=== PATIENT | male | born 1970 | race Caucasian/White ===

== ENCOUNTER 2018-08-28 13:27 | Emergency (ER) | payer SELFPAY ==
[2018-08-28] MEDS ORDERED: IPRATROPIUM/ALBUTEROL 0.5-2.5 MG/3 ML AMPUL NEB ONE ×2 (13:57→19:03)
--- NOTE | 2018-08-28 14:03 | ER Document Report ---
Addendum entered and electronically signed by PAYAM SANDERSON PA 08/30/18 06:53: Discharge - Discharge Clinical Impression: COPD (chronic obstructive pulmonary disease) with acute bronchitis, Wheezing Disposition: HOME, SELF-CARE Instructions: Chronic Obstructive Lung Disease ([facility]), Doxycycline ([facility]), Inhaled Bronchodilators ([facility]), Steroid Medication Additional Instructions: Return immediately for any new or worsening symptoms Followup with your primary care provider, call tomorrow to make a followup appointment Stop smoking Prescriptions: RX: Doxycycline Hyclate 100 mg PO BID #20 capsule Ipratropium/Albuterol Sulfate [Combivent Respimat 4 gm Mdi] 1 puff IH Q6 #1 aer.w.adap RX: Prednisone [Deltasone 20 mg Tablet] 3 tab PO DAILY 5 Days tablet Forms: Smoking Cessation Education, Return to Work Referrals: [facility] [Provider Group] - Follow up as needed [facility] [Provider Group] - Follow up as needed Addendum entered and electronically signed by RAMESH WILLIAM NP 08/29/18 07:09: Discharge - Discharge Clinical Impression: COPD (chronic obstructive pulmonary disease) with acute bronchitis, Wheezing Disposition: HOME, SELF-CARE Instructions: Chronic Obstructive Lung Disease ([facility]), Doxycycline ([facility]), Inhaled Bronchodilators ([facility]), Steroid Medication Additional Instructions: Return immediately for any new or worsening symptoms Followup with your primary care provider, call tomorrow to make a followup appointment Stop smoking Prescriptions: RX: Doxycycline Hyclate 100 mg PO BID #20 capsule Ipratropium/Albuterol Sulfate [Combivent Respimat 4 gm Mdi] 1 puff IH Q6 #1 aer.w.adap RX: Prednisone [Deltasone 20 mg Tablet] 3 tab PO DAILY 5 Days tablet Forms: Smoking Cessation Education, Return to Work Referrals: [facility] [Provider Group] - Follow up as needed [facility] [Provider Group] - Follow up as needed Addendum entered and electronically signed by RAMESH WILLIAM NP 08/29/18 07:08: Discharge - Discharge Clinical Impression: COPD (chronic obstructive pulmonary disease) with acute bronchitis, Wheezing Disposition: HOME, SELF-CARE Instructions: Chronic Obstructive Lung Disease ([facility]), Doxycycline ([facility]), Inhaled Bronchodilators ([facility]), Steroid Medication Additional Instructions: Return immediately for any new or worsening symptoms Followup with your primary care provider, call tomorrow to make a followup appointment Stop smoking Prescriptions: RX: Doxycycline Hyclate 100 mg PO BID #20 capsule Ipratropium/Albuterol Sulfate [Combivent Respimat 4 gm Mdi] 1 puff IH Q6 #1 aer.w.adap RX: Prednisone [Deltasone 20 mg Tablet] 3 tab PO DAILY 5 Days tablet Forms: Smoking Cessation Education, Return to Work Referrals: [facility] [Provider Group] - Follow up as needed [facility] [Provider Group] - Follow up as needed Original Note: ED Respiratory Problem - General Mode of Arrival: Ambulatory Information source: Patient - HPI Patient complains to provider of: Cough, Short of breath Onset: Other - 4 days Duration: Worse/persistent Quality of pain: Achy Pain Level: 3 Context: Smoker Sputum amount: Moderate Sputum color: Clear Associated symptoms: Cough, Fever, Wheezing. denies: Bloody cough, Chest pain/discomfort, Jaw pain Similar symptoms previously: No Recently seen / treated by doctor: No <RAMESH WILLIAM - Last Filed: 08/28/18 19:32> <PAYAM SANDERSON - Last Filed: 08/28/18 21:49> - General Chief Complaint: Shortness Of Breath Stated Complaint: DIFFICULTY BREATHING Time Seen by Provider: 08/28/18 13:47 Notes: Patient presents with a 4-day history of productive cough, wheezing and dyspnea that is worse with exertion. Patient denies any chest pain but does complain of left upper back pain that started around 9 AM today. Patient reports subjective fever at home. Patient does not regularly go to a doctor but does report smoking a pack of cigarettes a day for many years. (RAMESH WILLIAM) - Related Data Allergies/Adverse Reactions: BEESTINGS Allergy (Uncoded 08/28/18 13:44) Anaphylaxis Past Medical History - General Information source: Patient - Social History Smoking Status: Current Every Day Smoker Frequency of alcohol use: None Drug Abuse: None Occupation: [employer] Lives with: Spouse/Significant other Family History: Reviewed & Not Pertinent Patient has suicidal ideation: No Patient has homicidal ideation: No - Medical History Medical History: Negative Renal/ Medical History: Denies: Hx Peritoneal Dialysis Surgical Hx: Negative <RAMESH WILLIAM - Last Filed: 08/28/18 19:32> Review of Systems - Review of Systems Constitutional: Fever EENT: No symptoms reported Cardiovascular: No symptoms reported. denies: Chest pain Respiratory: Cough, Short of breath, Sputum, Wheezing Gastrointestinal: No symptoms reported. denies: Vomiting Genitourinary: No symptoms reported. denies: Dysuria Male Genitourinary: No symptoms reported Musculoskeletal: Back pain Skin: No symptoms reported Hematologic/Lymphatic: No symptoms reported Neurological/Psychological: No symptoms reported <RAMESH WILLIAM - Last Filed: 08/28/18 19:32> Physical Exam - General General appearance: Alert In distress: Mild - HEENT Head: Normocephalic, Atraumatic Eyes: Normal Conjunctiva: Normal Nasal: Normal Mouth/Lips: Normal Mucous membranes: Normal Neck: Normal, Supple. No: Lymphadenopathy - Respiratory Respiratory status: Tachypnea Chest status: Nontender Breath sounds: Productive cough, Wheezing Chest palpation: Normal. No: Tender - Cardiovascular Rhythm: Regular. No: Tachycardia Heart sounds: S1 appreciated, S2 appreciated Murmur: No - Abdominal Inspection: Normal Distension: No distension Bowel sounds: Normal Tenderness: Nontender Organomegaly: No organomegaly - Back Back: Tender - left upper thoracic area - Extremities General upper extremity: Normal inspection, Normal strength General lower extremity: Normal inspection, Normal strength - Neurological Neuro grossly intact: Yes Mara Coma Scale Eye Opening: Spontaneous Mara Coma Scale Verbal: Oriented [place] Coma Scale Motor: Obeys Commands [place] Coma Scale Total: 15 - Psychological Associated symptoms: Normal affect, Normal mood - Skin Skin Temperature: Warm Skin Moisture: Dry Skin Color: Normal <STEWARTRAMESH Webster - Last Filed: 08/28/18 19:32> - Vital signs Vitals: Temp 98.3 F 08/28/18 13:38 Course - Laboratory Result Diagrams: 08/28/18 14:19 08/28/18 14:19 - Diagnostic Test Radiology reviewed: Reports reviewed <[email or web address] Webster - Last Filed: 08/28/18 19:32> - Laboratory Result Diagrams: 08/28/18 14:19 08/28/18 14:19 <PAYAM SANDERSON - Last Filed: 08/28/18 21:49> - Re-evaluation Re-evalutation: 08/28/18 16:51 Patient with stable vital signs, diffuse wheezing bilaterally continues. Will repeat troponin as well as an ABG at this time. Additional nebulizer treatment ordered. 08/28/18 19:08 Patient ambulated in the hallway, heart rate got up to 104 with oxygen saturati on 90-94%. On repeat examination room. Continues with bilateral wheezing although does have increased air movement and has less wheezing than on initial presentation. In the room sitting patient's O2 sat ranges from 88-93%. Will order additional nebulizer treatment. Report and handoff given to Payam HARRIS (RAMESH WILLIAM) 08/28/18 On my evaluation patient is 98% on room air. No tachypnea, no respiratory distress, no complaints currently. He has a few coarse breath sounds and soft wheezes still on auscultation. He states he would like to go home now. He has already ambulated without concerning desaturation or distress. Provided with inhaler and spacer, has been prescribed medications, discussed follow-up and return precautions. Patient and state satisfaction and agreement. Stable at time of discharge. (PAYAM SANDERSON) - Vital Signs Vital signs: Temp Pulse Resp BP Pulse Ox 98.3 F 26 H 140/127 H 96 08/28/18 13:38 08/28/18 20:01 08/28/18 20:01 08/28/18 20:01 - Laboratory Laboratory results interpreted by me: 08/28/18 08/28/18 14:19 17:28 ABG pO2 54.7 L ABG HCO3 26.4 H ABG Total CO2 27.7 H ABG O2 Saturation 89.0 L Glucose 112 H ALT 12 L Labs- Entire Visit 08/28/18 08/28/18 08/28/18 14:19 14:19 14:19 WBC 8.8 RBC 5.40 Hgb 15.2 Hct 45.7 MCV 85 MCH 28.1 MCHC 33.3 RDW 13.6 Plt Count 348 Seg Neutrophils % 71.0 Lymphocytes % 17.3 Monocytes % 4.7 Eosinophils % 6.0 Basophils % 1.0 Absolute Neutrophils 6.3 Absolute Lymphocytes 1.5 Absolute Monocytes 0.4 Absolute Eosinophils 0.5 Absolute Basophils 0.1 D-Dimer Carbonic Acid HCO3/H2CO3 Ratio ABG pH ABG pCO2 ABG pO2 ABG HCO3 ABG Total CO2 ABG O2 Saturation ABG Base Excess FiO2 Sodium 141.3 Potassium 4.2 Chloride 104 Carbon Dioxide 25 Anion Gap 12 BUN 18 Creatinine 0.84 Est GFR ( Amer) > 60 Est GFR (Non-Af Amer) > 60 Glucose 112 H Calcium 9.6 Total Bilirubin 0.5 Direct Bilirubin 0.3 Neonat Total Bilirubin Not Reportable Neonat Direct Bilirubin Not Reportable Neonat Indirect Bili Not Reportable AST 23 ALT 12 L Alkaline Phosphatase 51 Troponin I < 0.012 Total Protein 8.1 Albumin 4.7 Influenza A (Rapid) Influenza B (Rapid) 08/28/18 08/28/18 08/28/18 14:19 17:28 17:28 WBC RBC Hgb Hct MCV MCH MCHC RDW Plt Count Seg Neutrophils % Lymphocytes % Monocytes % Eosinophils % Basophils % Absolute Neutrophils Absolute Lymphocytes Absolute Monocytes Absolute Eosinophils Absolute Basophils D-Dimer < 0.27 Carbonic Acid 1.25 HCO3/H2CO3 Ratio 21:1 ABG pH 7.42 ABG pCO2 41.6 ABG pO2 54.7 L ABG HCO3 26.4 H ABG Total CO2 27.7 H ABG O2 Saturation 89.0 L ABG Base Excess 1.7 FiO2 ROOM AIR Sodium Potassium Chloride Carbon Dioxide Anion Gap BUN Creatinine Est GFR ( Amer) Est GFR (Non-Af Amer) Glucose Calcium Total Bilirubin Direct Bilirubin Neonat Total Bilirubin Neonat Direct Bilirubin Neonat Indirect Bili AST ALT Alkaline Phosphatase Troponin I < 0.012 Total Protein Albumin Influenza A (Rapid) Influenza B (Rapid) 08/28/18 17:28 WBC RBC Hgb Hct MCV MCH MCHC RDW Plt Count Seg Neutrophils % Lymphocytes % Monocytes % Eosinophils % Basophils % Absolute Neutrophils Absolute Lymphocytes Absolute Monocytes Absolute Eosinophils Absolute Basophils D-Dimer Carbonic Acid HCO3/H2CO3 Ratio ABG pH ABG pCO2 ABG pO2 ABG HCO3 ABG Total CO2 ABG O2 Saturation ABG Base Excess FiO2 Sodium Potassium Chloride Carbon Dioxide Anion Gap BUN Creatinine Est GFR ( Amer) Est GFR (Non-Af Amer) Glucose Calcium Total Bilirubin Direct Bilirubin Neonat Total Bilirubin Neonat Direct Bilirubin Neonat Indirect Bili AST ALT Alkaline Phosphatase Troponin I Total Protein Albumin Influenza A (Rapid) NEGATIVE Influenza B (Rapid) NEGATIVE (RAMESH WILLIAM) Discharge <RAMESH WILLIAM - Last Filed: 08/28/18 19:32> <PAYAM SANDERSON - Last Filed: 08/28/18 21:49> - Discharge Clinical Impression: COPD (chronic obstructive pulmonary disease) with acute bronchitis, Wheezing Disposition: HOME, SELF-CARE Instructions: Chronic Obstructive Lung Disease ([facility]), Doxycycline ([facility]), Inhaled Bronchodilators ([facility]), Steroid Medication Additional Instructions: Return immediately for any new or worsening symptoms Followup with your primary care provider, call tomorrow to make a followup appointment Stop smoking Prescriptions: Doxycycline Hyclate 100 mg PO BID #20 capsule Ipratropium/Albuterol Sulfate [Combivent Respimat 4 gm Mdi] 1 puff IH Q6 #1 aer.w.adap Prednisone [Deltasone 20 mg Tablet] 3 tab PO DAILY 5 Days tablet Forms: Smoking Cessation Education, Return to Work Referrals: [facility] [Provider Group] - Follow up as needed [facility] [Provider Group] - Follow up as needed
[2018-08-28 14:44] LABS: ABSOLUTE BASOPHILS # (AUTO) 0.1 10^3/uL (0.0-0.2); ABSOLUTE EOSINOPHILS # (AUTO) 0.5 10^3/uL (0.0-0.6); ABSOLUTE LYMPHOCYTES (AUTO) 1.5 10^3/uL (0.5-4.7); ABSOLUTE MONOCYTES (AUTO) 0.4 10^3/uL (0.1-1.4); ABSOLUTE NEUT (AUTO) 6.3 10^3/uL (1.7-8.2); HEMATOCRIT 45.7 % (37.9-51.0); HEMOGLOBIN 15.2 g/dL (13.5-17.0); LYMPHOCYTES % (AUTO) 17.3 % (13-45); MEAN CORPUSCULAR HEMOGLOBIN 28.1 pg (27.0-33.4); MEAN CORPUSCULAR HGB CONC 33.3 g/dL (32.0-36.0); MEAN CORPUSCULAR VOLUME 85 fl (80-97); MONOCYTES % (AUTO) 4.7 % (3-13); PLATELET COUNT 348 10^3/uL (150-450); RED CELL DISTRIBUTION WIDTH 13.6 % (11.5-14.0); TOTAL CELLS COUNTED % (AUTO) 100 %; WHITE BLOOD COUNT 8.8 10^3/uL (4.0-10.5)
[2018-08-28 14:47] LABS: ALANINE AMINOTRANSFERASE 12 U/L (21-72); ALBUMIN 4.7 g/dL (3.5-5.0); ALKALINE PHOSPHATASE 51 U/L (38-126); ANION GAP 12 (5-19); ASPARTATE AMINO TRANSFERASE 23 U/L (17-59); BILIRUBIN,DIRECT 0.3 mg/dL (0.0-0.4); BILIRUBIN,TOTAL 0.5 mg/dL (0.2-1.3); BLOOD UREA NITROGEN 18 mg/dL (7-20); CALCIUM 9.6 mg/dL (8.4-10.2); CARBON DIOXIDE 25 mmol/L (22-30); CHLORIDE 104 mmol/L (98-107); GLUCOSE 112 mg/dL (75-110); POTASSIUM 4.2 mmol/L (3.6-5.0); SODIUM 141.3 mmol/L (137-145); TOTAL PROTEIN 8.1 g/dL (6.3-8.2)
[2018-08-28] MEDS ORDERED: CEFTRIAXONE INJ 1000 MG VIAL IV ONE (14:58)
--- NOTE | 2018-08-28 15:29 | RADIOLOGY REPORT (SQ) ---
EXAM DESCRIPTION: CHEST 2 VIEWS COMPLETED DATE/TIME: 08/28/2018 3:10 pm REASON FOR STUDY: cough, sob COMPARISON: None. TECHNIQUE: Frontal and lateral radiographic views of the chest acquired. NUMBER OF VIEWS: Two view. LIMITATIONS: None. FINDINGS: LUNGS AND PLEURA: No opacities, masses or pneumothorax. No pleural effusion. MEDIASTINUM AND HILAR STRUCTURES: No masses or contour abnormalities. HEART AND VASCULAR STRUCTURES: Heart normal size. No evidence for failure. BONES: No acute findings. HARDWARE: None in the chest. OTHER: No other significant finding. IMPRESSION: NO SIGNIFICANT RADIOGRAPHIC FINDING IN THE CHEST. TECHNICAL DOCUMENTATION: JOB ID: [id number] [employer]- All Rights Reserved Reading location - IP/workstation name: [email or web address]
[2018-08-28] MEDS ORDERED: ALBUTEROL SULFATE 0.083% NEB 2.5 MG/3 ML AMPUL NEB ONE ×2 (16:50→18:07)
[2018-08-28] MEDS ORDERED: DOXYCYCLINE HYCLATE INJ 100 MG VIAL IV ONE (16:50)
[2018-08-28 17:39] LABS: ARTERIAL BLOOD BASE EXCESS 1.7 mmol/L; ARTERIAL BLOOD H2CO3 1.25 mmol/L (1.05-1.35); ARTERIAL BLOOD HCO3 26.4 mmol/L (20-24); ARTERIAL BLOOD PCO2 41.6 mmHg (35-45); ARTERIAL BLOOD PH 7.42 (7.35-7.45); ARTERIAL BLOOD PO2 54.7 mmHg (80-100); ARTERIAL BLOOD TOTAL CO2 27.7 mmol/L (23-27)
[2018-08-28 17:40] LABS: ARTERIAL BLOOD FIO2 ROOM AIR
[2018-08-28 18:08] LABS: A TYPE INFLUENZA AG NEGATIVE (NEGATIVE); B INFLUENZA AG NEGATIVE (NEGATIVE)
[2018-08-28] MEDS ORDERED: PREDNISONE 20 MG TABLET PO ONE (19:03)
[2018-08-28] MEDS ORDERED: ALBUTEROL SULFATE HFA (90 MCG/PUFF) 8 GM MDI (1 MDI/ER DISP) IH ONE (19:13)
[2018-08-28 20:16] VITALS: BP 140/127
--- NOTE | 2018-08-28 22:13 | EKG REPORT ---
SEVERITY:- NORMAL ECG - SINUS RHYTHM : Confirmed by: Keri Ireland MD 28-Aug-2018 22:12:54
== END 2018-08-28 20:27 | disposition home or self-care (01) ==
LOC: ER 13:27
DX: J20.9 Acute bronchitis, unspecified (principal); J44.0 Chronic obstructive pulmonary disease with (acute) lower respiratory infection; R05 Cough; R06.02 Shortness of breath; R50.9 Fever, unspecified; M54.89 Other dorsalgia; F17.210 Nicotine dependence, cigarettes, uncomplicated; Z87.892 Personal history of anaphylaxis; Z91.030 Bee allergy status
CPT/HCPCS: 93005; 94640 ×2; 99285; 96365; 96367; 36415; 87040; 87070; 87205; 82803; 85025; 80053; 84484; 85379; 87804; 71046; 93010; J3490 ×2; J7512; J0696; J7620

== ENCOUNTER 2019-05-30 02:15 | Inpatient (IN) | payer OTHER ==
[2019-05-30] MEDS ORDERED: IPRATROPIUM/ALBUTEROL 0.5-2.5 MG/3 ML AMPUL NEB ONE ×2 (02:48→02:49)
--- NOTE | 2019-05-30 02:51 | ER Document Report ---
ED Respiratory Problem - General Stated Complaint: SHORTNESS OF BREATH Time Seen by Provider: 05/30/19 02:44 Notes: Patient is a 48-year-old male that comes emergency department for chief complaint of difficulty breathing. He states that he has had worsening difficulty breathing and coughing with wheezing for the past 3 days but tonight it became much more severe. EMS gave him 1 DuoNeb, 2 albuterol treatments, and 125 mg of Solu-Medrol. He states now he can actually breathe but he still does not feel good. He denies fever, vomiting, specific chest pain without cough, or any other complaints at this time. He does smoke, has a history of COPD, he denies any medical history otherwise. He denies ever being hospitalized or intubated for COPD. - Related Data Allergies/Adverse Reactions: BEESTINGS Allergy (Uncoded 08/28/18 13:44) Anaphylaxis Past Medical History - General Information source: Patient - Social History Smoking Status: Current Every Day Smoker Smoking Education Provided: Yes Frequency of alcohol use: None Drug Abuse: None Lives with: Family Family History: Reviewed & Not Pertinent Pulmonary Medical History: Reports: Hx COPD Renal/ Medical History: Denies: Hx Peritoneal Dialysis - Immunizations Hx Diphtheria, Pertussis, Tetanus Vaccination: Yes Review of Systems - Review of Systems Constitutional: No symptoms reported EENT: No symptoms reported Cardiovascular: No symptoms reported Respiratory: See HPI Gastrointestinal: No symptoms reported Genitourinary: No symptoms reported Male Genitourinary: No symptoms reported Musculoskeletal: No symptoms reported Skin: No symptoms reported Hematologic/Lymphatic: No symptoms reported Neurological/Psychological: No symptoms reported Physical Exam - Vital signs Vitals: Resp 24 H 05/30/19 02:28 - Notes Notes: GENERAL: Alert, interacts well. HEAD: Normocephalic, atraumatic. EYES: Pupils equal, round, and reactive to light. Extraocular movements intact. ENT: Oral mucosa moist, tongue midline. Oropharynx unremarkable. Airway patent. NECK: Full range of motion. Supple. Trachea midline. LUNGS: Mild tachypnea noted, lung sounds decreased bilaterally with expiratory wheezes and scattered rhonchi. HEART: Regular rate and rhythm. No murmur ABDOMEN: Soft, non-tender. Non-distended. EXTREMITIES: Moves all 4 extremities spontaneously. No edema, normal radial and dorsalis pedis pulses bilaterally. No cyanosis. BACK: no cervical, thoracic, lumbar midline tenderness. No saddle anesthesia, normal distal neurovascular exam. Moves all extremities in full range of motion. NEUROLOGICAL: Alert and oriented x3. Normal speech. Cranial nerves II through XII grossly intact. PSYCH: Normal affect, normal mood. SKIN: Warm, dry, normal turgor. No rashes or lesions noted. Course - Re-evaluation Re-evalutation: On my initial evaluation patient has mild tachypnea, very decreased breath sounds with scattered rhonchi and expiratory wheezes. He is also borderline hypoxic despite the DuoNeb. Given additional DuoNeb, magnesium, he will be closely reassessed. CBC nonspecific, chemistry nonspecific, troponin is not elevated. Chest x-ray with no acute disease. ABG shows PO2 of 61 despite patient having the DuoNeb going at 6 L. There is no acidosis fortunately however. On reevaluation after all treatments patient is still improved but still has notable wheezes. He is not tachypneic. However at rest he will drop down to 87 and 88 pulse oxygen saturation without even getting up and walking. He still admits that he feels slightly short of breath. Patient placed back on oxygen and with 3 L nasal cannula he is at 96%. Because of his oxygen requirement, COPD exacerbation, I discussed the patient and I will discuss with his provider for admission to the hospital. Patient states appreciation and agreement. I spoke with Dr. Malik, patient's provider, patient admitted to telemetry observation. - Vital Signs Vital signs: Temp Pulse Resp BP Pulse Ox 17 128/85 H 94 05/30/19 04:01 05/30/19 04:01 05/30/19 04:17 - Laboratory Result Diagrams: 05/30/19 03:20 05/30/19 03:20 Laboratory results interpreted by me: 05/30/19 05/30/19 05/30/19 03:20 03:20 03:58 WBC 11.3 H Lymph % (Auto) 11.8 L Absolute Neuts (auto) 8.8 H ABG pO2 63.1 L ABG HCO3 26.8 H ABG Total CO2 28.2 H ABG O2 Saturation 92.1 L Potassium 3.5 L Glucose 145 H Discharge - Discharge Clinical Impression: COPD exacerbation, Hypoxia, Wheezing, Tobacco abuse Condition: Stable Disposition: ADMITTED OBSERVATION Admitting Provider: [facility] Admitted: Telemetry
[2019-05-30] MEDS: MAGNESIUM SULFATE/D5W 1 GM/100 ML RTUPB IV SCH ×2 (03:21→03:59)
[2019-05-30 03:43] LABS: ABSOLUTE BASOPHILS # (AUTO) 0.1 10^3/uL (0.0-0.2); ABSOLUTE EOSINOPHILS # (AUTO) 0.6 10^3/uL (0.0-0.6); ABSOLUTE LYMPHOCYTES (AUTO) 1.3 10^3/uL (0.5-4.7); ABSOLUTE MONOCYTES (AUTO) 0.5 10^3/uL (0.1-1.4); ABSOLUTE NEUT (AUTO) 8.8 10^3/uL (1.7-8.2); BASOPHILS % (AUTO) 0.7 % (0-2); EOSINOPHILS % (AUTO) 5.2 % (0-6); HEMATOCRIT 41.6 % (37.9-51.0); HEMOGLOBIN 13.7 g/dL (13.5-17.0); LYMPHOCYTES % (AUTO) 11.8 % (13-45); MEAN CORPUSCULAR HEMOGLOBIN 28.1 pg (27.0-33.4); MEAN CORPUSCULAR VOLUME 85 fl (80-97); MONOCYTES % (AUTO) 4.6 % (3-13); PLATELET COUNT 322 10^3/uL (150-450); RED CELL DISTRIBUTION WIDTH 13.9 % (11.5-14.0); SEGMENTED NEUTROPHILS % (AUTO) 77.7 % (42-78); TOTAL CELLS COUNTED % (AUTO) 100 %; WHITE BLOOD COUNT 11.3 10^3/uL (4.0-10.5)
[2019-05-30 04:03] LABS: ALBUMIN 4.4 g/dL (3.5-5.0); ALKALINE PHOSPHATASE 48 U/L (38-126); ANION GAP 11 (5-19); ASPARTATE AMINO TRANSFERASE 23 U/L (17-59); BILIRUBIN,DIRECT 0.1 mg/dL (0.0-0.4); BILIRUBIN,TOTAL 0.4 mg/dL (0.2-1.3); BLOOD UREA NITROGEN 19 mg/dL (7-20); CALCIUM 9.2 mg/dL (8.4-10.2); CARBON DIOXIDE 28 mmol/L (22-30); CHLORIDE 101 mmol/L (98-107); GLUCOSE 145 mg/dL (75-110); POTASSIUM 3.5 mmol/L (3.6-5.0); TOTAL PROTEIN 7.5 g/dL (6.3-8.2)
[2019-05-30 04:22] LABS: ARTERIAL BLOOD BASE EXCESS 1.6 mmol/L; ARTERIAL BLOOD H2CO3 1.33 mmol/L (1.05-1.35); ARTERIAL BLOOD HCO3 26.8 mmol/L (20-24); ARTERIAL BLOOD O2 SATURATION 92.1 % (94-98); ARTERIAL BLOOD PCO2 44.3 mmHg (35-45); ARTERIAL BLOOD PO2 63.1 mmHg (80-100); ARTERIAL BLOOD TOTAL CO2 28.2 mmol/L (23-27)
[2019-05-30 04:27] LABS: ARTERIAL BLOOD FIO2 6L
--- NOTE | 2019-05-30 05:02 | RADIOLOGY REPORT (SQ) ---
Chest single view on 05/30/2019 at 3:14 AM CLINICAL INDICATION: Shortness of breath COMPARISON: 08/28/2018 FINDINGS: The lungs are clear. Cardiac, hilar and mediastinal contours are within normal limits. Pulmonary vascularity is within normal limits. No bony abnormality is noted. IMPRESSION: No active disease.
[2019-05-30] MEDS ORDERED: ACETAMINOPHEN 325 MG TABLET PO PRN (06:45)
[2019-05-30] MEDS ORDERED: METHYLPREDNISOLONE INJ 40 MG/1 ML SDV IV SCH (07:00)
--- NOTE | 2019-05-30 07:56 | EKG REPORT ---
SEVERITY:- BORDERLINE ECG - SINUS RHYTHM BORDERLINE R WAVE PROGRESSION, ANTERIOR LEADS : Confirmed by: Shaq Walsh MD 30-May-2019 07:55:06
[2019-05-30] MEDS: METHYLPREDNISOLONE INJ 125 MG/2 ML SDV IV SCH ×3 (08:26→21:37)
[2019-05-30] MEDS: IPRATROPIUM/ALBUTEROL 0.5-2.5 MG/3 ML AMPUL NEB SCH ×4 (08:27→20:49)
--- NOTE | 2019-05-30 08:28 | RADIOLOGY REPORT (SQ) ---
EXAM DESCRIPTION: CTA CHEST COMPLETED DATE/TIME: 05/30/2019 8:11 am REASON FOR STUDY: sob COMPARISON: None. TECHNIQUE: CT scan of the chest performed using helical scanning technique with dynamic intravenous contrast injection. Images reviewed with lung, soft tissue and bone windows. Reconstructed coronal and sagittal MPR images reviewed. Additional 3 dimensional post-processing performed to develop Maximal Intensity Projection images (TN P). All images stored on PACS. All CT scanners at this facility use dose modulation, iterative reconstruction, and/or weight based d osing when appropriate to reduce radiation dose to as low as reasonably achievable (ALARA). [facility]: Dose Right [facility]: CareDose [facility]: Dose Right [facility]: Teradose 4D [facility]: [employer] CONTRAST TYPE AND DOSE: contrast/concentration: Isovue 350.00 mg/ml; Total Contrast Delivered: 70.0 ml; Total Saline Delivered: 80.0 ml Contrast bolus optimized for the pulmonary arteries. Not diagnostic for the aorta. RENAL FUNCTION: GFR > 60. RADIATION DOSE: CT Rad equipment meets quality standard of care and radiation dose reduction techniq ues were employed. CTDIvol: 7.5 - 7.8 mGy. DLP: 338 mGy-cm. . LIMITATIONS: None. FINDINGS: LUNGS AND PLEURA: Moderate centrilobular emphysema. No masses, infiltrates, or pneumothor ax. No pleural effusions or pleural calcifications. AORTA AND GREAT VESSELS: No aneurysm. Contrast bolus not optimized for the aorta. HEART: No pericardial effusion. No significant coronary artery calcifications. PULMONARY ARTERIES: No emboli visualized in the main pulmonary arteries or the segmental branches. HILAR AND MEDIASTINAL STRUCTURES: No identified masses or abnormal nodes. HARDWARE: None in the chest. UPPER ABDOMEN: Partially imaged hydronephrosis of the left kidney. THYROID AND OTHER SOFT TISSUES: No masses. No adenopathy. BONES: No acute or significant finding. 3D MIPS: Confirm above findings. OTHER: No other significant finding. IMPRESSION: 1. Negative examination for pulmonary embolism. 2. Emphysema. 3. Partially imaged hydronephrosis of the left kidney, of uncertain etiology or chronicity. Conside r dedicated CT examination of the abdomen to further evaluate. COMMENT: Quality ID # [id number]: Final reports with documentation of one or more dose reduction techniques (e.g., Automated exposure control, adjustment of the mA and/or kV according to patient size, use of iterative reconstruction technique) TECHNICAL DOCUMENTATION: JOB ID: [id number] [employer] [facility] [employer]- All Rights Reserved Reading location - IP/workstation name: [email or web address]
[2019-05-30] MEDS: LEVOFLOXACIN 500 MG/D5W RTU 500 MG/100 ML RTUPB IV SCH (09:54)
[2019-05-30] MEDS: ENOXAPARIN SODIUM INJ 40 MG/0.4 ML DISP.SYRIN SUBCUT SCH (09:55)
[2019-05-30] MEDS: FAMOTIDINE 20 MG TABLET PO SCH ×2 (09:55→21:37)
[2019-05-30 10:55] LABS: ANION GAP 14 (5-19); BLOOD UREA NITROGEN 15 mg/dL (7-20); CALCIUM 9.4 mg/dL (8.4-10.2); CARBON DIOXIDE 23 mmol/L (22-30); CHLORIDE 99 mmol/L (98-107); CREATINE KINASE 104 U/L (55-170); GLUCOSE 287 mg/dL (75-110); POTASSIUM 4.1 mmol/L (3.6-5.0)
[2019-05-30 11:06] LABS: CREATINE KINASE MB 0.96 ng/mL (<4.55)
[2019-05-30 11:12] LABS: TROPONIN I < 0.012 ng/mL
--- NOTE | 2019-05-30 12:58 | RADIOLOGY REPORT (SQ) ---
EXAM DESCRIPTION: CT ABD/PELVIS NO ORAL OR IV COMPLETED DATE/TIME: 05/30/2019 12:09 pm REASON FOR STUDY: hydronephrosis COMPARISON: CT of the chest with contrast from 05/30/2019. TECHNIQUE: CT scan of the abdomen and pelvis performed without intravenous or oral contrast. Images reviewed with lung, soft tissue, and bone windows. Reconstructed coronal and sagittal MPR images revi ewed. All images stored on PACS. All CT scanners at this facility use dose modulation, iterative reconstruction, and/or weight based d osing when appropriate to reduce radiation dose to as low as reasonably achievable (ALARA). [facility]: Dose Right [facility]: CareDose [facility]: Dose Right [facility]: Teradose 4D [facility]: [employer] RADIATION DOSE: CT Rad equipment meets quality standard of care and radiation dose reduction techniq ues were employed. CTDIvol: 4.9 mGy. DLP: 258 mGy-cm.mGy. LIMITATIONS: None. FINDINGS: LOWER CHEST: See separate report of the CT of the chest. NON-CONTRASTED LIVER, SPLEEN, ADRENALS: Evaluation is limited due to the absence of intravenous contr ast. The liver morphology is non cirrhotic. There is no CT evidence of hepatic steatosis. The sple en is normal in size. There is no abnormality of the adrenal glands. PANCREAS: No abnormality of the pancreas. GALLBLADDER: No abnormality that is apparent on CT. RIGHT KIDNEY AND URETER: Evaluation is limited due to the absence of intravenous contrast and the exc reted contrast within the renal calices and pelvis. There is no hydronephrosis, hydroureter or urete rolithiasis. LEFT KIDNEY AND URETER: Evaluation is limited due to the absence of intravenous contrast. There is m oderate hydronephrosis with an abrupt transition at the ureteropelvic junction. The ureter is normal in caliber and there are no filling defects within the opacified and dilated renal pelvis and calice s. AORTA AND RETROPERITONEUM: No aneurysmal dilatation of the abdominal aorta or retroperitoneal adenopa thy. BOWEL AND PERITONEAL CAVITY: No acute findings. APPENDIX: Normal. PELVIS, BLADDER, AND ABDOMINAL WALL:The urinary bladder is distended and normal in appearance. There is no urinary bladder wall thickening or intraluminal filling defect. The prostate gland measures a pproximately 5 cm in transverse diameter. BONES: Chronic bilateral pars interarticularis defects at L5-S1 with grade 1 anterolisthesis of L5 re lative to S1. OTHER: Fat containing umbilical hernia. IMPRESSION: Moderate left hydronephrosis with an abrupt transition between the dilated renal pelvis and the nondilated left ureter at the level of the ureteropelvic junction. There are no filling defe cts within the opacified and dilated renal pelvis and calices. In addition, excreted contrast is no gely throughout the left ureter and there is no delayed uptake (based on review of the prior contrast- enhanced CT) or excretion of the contrast by the left kidney. COMMENT: Quality ID # [id number]: Final reports with documentation of one or more dose reduction techniques (e.g., Automated exposure control, adjustment of the mA and/or kV according to patient size, use of iterative reconstruction technique) TECHNICAL DOCUMENTATION: JOB ID: [id number] [employer]- All Rights Reserved Reading location - IP/workstation name: [email or web address]
--- NOTE | 2019-05-30 14:02 | PDOC H&P ---
History of Present Illness Admission Date/PCP: 05/30/19 06:45 SANTY MORATAYA MD Patient complains of: shortness of breath History of Present Illness: KRISTEN HERNANDEZ is a 48 year old male 48-year-old male with a history of the COPD chronic smoker came to the emergency department with a complaining of a cough congestion short of breath no respiratory distress Patient was complaining some cough congestion since last 1 week in the last 3 days patient is feeling more short of breath Emergency department patient was giving the several respiratory treatments put on oxygen's and patients feel better now At this point patient decided to admit in the hospital for the COPD acute exacerbations discuss with the patient's and the family and the bedside in the emergency department Past Medical History Pulmonary Medical History: Reports: Chronic Obstructive Pulmonary Disease (COPD) Social History Information Source: Patient Lives with: Family Smoking Status: Current Every Day Smoker Electronic Cigarette use?: No Frequency of Alcohol Use: Occasional Hx Recreational Drug Use: No Hx Prescription Drug Abuse: No Family History Family History: Reviewed & Not Pertinent Parental Family History Reviewed: Yes Children Family History Reviewed: Yes Sibling(s) Family History Reviewed.: Yes Medication/Allergy Home Medications: No Home Medications 05/30/19 Allergies/Adverse Reactions: BEESTINGS Allergy (Uncoded 08/28/18 13:44) Anaphylaxis Review of Systems Constitutional: ABSENT: chills, fever(s), headache(s), weight gain, weight loss Eyes: ABSENT: visual disturbances Ears: ABSENT: hearing changes Cardiovascular: PRESENT: dyspnea on exertion. ABSENT: chest pain, edema, orthropnea, palpitations Respiratory: PRESENT: cough, dyspnea. ABSENT: hemoptysis Gastrointestinal: ABSENT: abdominal pain, constipation, diarrhea, hematemesis, hematochezia, nausea, vomiting Genitourinary: ABSENT: dysuria, hematuria Musculoskeletal: ABSENT: joint swelling Integumentary: ABSENT: rash, wounds Neurological: ABSENT: abnormal gait, abnormal speech, confusion, dizziness, focal weakness, syncope Psychiatric: ABSENT: anxiety, depression, homidical ideation, suicidal ideation Endocrine: ABSENT: cold intolerance, heat intolerance, menstrual abnormalities, polydipsia, polyuria Hematologic/Lymphatic: ABSENT: easy bleeding, easy bruising, lymphadenopathy Physical Exam Vital Signs: Temp Pulse Resp BP Pulse Ox 98.2 F 21 H 128/88 H 96 05/30/19 10:00 05/30/19 13:43 05/30/19 13:43 05/30/19 13:43 Intake & Output 05/29/19 05/30/19 05/31/19 06:59 06:59 06:59 Intake Total 163 100 Balance 163 100 Weight 80.739 kg General appearance: PRESENT: no acute distress, well-developed, well-nourished Head exam: PRESENT: atraumatic, normocephalic Eye exam: PRESENT: conjunctiva pink, EOMI, PERRLA. ABSENT: scleral icterus Ear exam: PRESENT: normal external ear exam Mouth exam: PRESENT: moist, tongue midline Neck exam: PRESENT: full ROM. ABSENT: carotid bruit, JVD, lymphadenopathy, thyromegaly Respiratory exam: PRESENT: decreased breath sounds, wheezes Cardiovascular exam: PRESENT: RRR. ABSENT: diastolic murmur, rubs, systolic murmur Pulses: PRESENT: normal dorsalis pedis pul, +2 pedal pulses bilateral Vascular exam: PRESENT: normal capillary refill GI/Abdominal exam: PRESENT: normal bowel sounds, soft. ABSENT: distended, guarding, mass, organolmegaly, rebound, tenderness Rectal exam: PRESENT: deferred Extremities exam: ABSENT: pedal edema Musculoskeletal exam: PRESENT: ambulatory Neurological exam: PRESENT: alert, awake, oriented to person, oriented to place, oriented to time, oriented to situation, CN II-XII grossly intact. ABSENT: motor sensory deficit Psychiatric exam: PRESENT: appropriate affect, normal mood. ABSENT: homicidal ideation, suicidal ideation Skin exam: PRESENT: dry, intact, warm. ABSENT: cyanosis, rash Results Laboratory Results: 05/30/19 03:20 05/30/19 10:10 05/30/19 05/30/19 05/30/19 03:20 03:20 03:58 WBC 11.3 H RBC 4.90 Hgb 13.7 Hct 41.6 MCV 85 MCH 28.1 MCHC 33.0 RDW 13.9 Plt Count 322 Seg Neutrophils % 77.7 Carbonic Acid 1.33 HCO3/H2CO3 Ratio 20:1 ABG pH 7.40 ABG pCO2 44.3 ABG pO2 63.1 L ABG HCO3 26.8 H ABG O2 Saturation 92.1 L ABG Base Excess 1.6 FiO2 6L Sodium 139.7 Potassium 3.5 L Chloride 101 Carbon Dioxide 28 Anion Gap 11 BUN 19 Creatinine 0.83 Est GFR ( Amer) > 60 Glucose 145 H Calcium 9.2 Total Bilirubin 0.4 AST 23 Alkaline Phosphatase 48 Total Protein 7.5 Albumin 4.4 05/30/19 10:10 WBC RBC Hgb Hct MCV MCH MCHC RDW Plt Count Seg Neutrophils % Carbonic Acid HCO3/H2CO3 Ratio ABG pH ABG pCO2 ABG pO2 ABG HCO3 ABG O2 Saturation ABG Base Excess FiO2 Sodium 136.1 L Potassium 4.1 Chloride 99 Carbon Dioxide 23 Anion Gap 14 BUN 15 Creatinine 0.81 Est GFR ( Amer) > 60 Glucose 287 H Calcium 9.4 Total Bilirubin AST Alkaline Phosphatase Total Protein Albumin 05/30/19 05/30/19 05/30/19 03:20 10:10 10:10 Creatine Kinase 104 CK-MB (CK-2) 0.96 Troponin I < 0.012 < 0.012 Impressions: Abdomen/Pelvis CT 05/30/19 00:00 IMPRESSION: Moderate left hydronephrosis with an abrupt transition between the dilated renal pelvis and the nondilated left ureter at the level of the ureteropelvic junction. There are no filling defects within the opacified and dilated renal pelvis and calices. In addition, excreted contrast is noted throughout the left ureter and there is no delayed uptake (based on review of the prior contrast-enhanced CT) or excretion of the contrast by the left kidney. Chest/Abdomen CTA 05/30/19 00:00 IMPRESSION: 1. Negative examination for pulmonary embolism. 2. Emphysema. 3. Partially imaged hydronephrosis of the left kidney, of uncertain etiology or chronicity. Consider dedicated CT examination of the abdomen to further evaluate. Chest X-Ray 05/30/19 02:49 IMPRESSION: No active disease. Assessment & Plan - Diagnosis (1) COPD exacerbation Is this a current diagnosis for this admission?: Yes Plan: Start the patient on Solu-Medrol's and also start the patient on a DuoNeb respiratory treatments (2) Hypoxia Is this a current diagnosis for this admission?: Yes Plan: CT angiogram is negative for pulmonary embolisms most likely is coming from the COPD and emphysema (3) Tobacco abuse Is this a current diagnosis for this admission?: Yes Plan: Discussed with the patient about smoking counseling (4) Hydronephrosis Qualifiers: Hydronephrosis type: unspecified Qualified Code(s): N13.30 - Unspecified hydronephrosis Is this a current diagnosis for this admission?: Yes Plan: Will order the CT scan of the abdomen and pelvis with incidental findings (5) Respiratory distress Is this a current diagnosis for this admission?: Yes Plan: Is likely due to the COPD continues to COPD acute exacerbations protocol
[2019-05-30 17:31] LABS: CREATINE KINASE MB 0.89 ng/mL (<4.55); TROPONIN I < 0.012 ng/mL
[2019-05-30 23:08] LABS: CREATINE KINASE MB 1.11 ng/mL (<4.55)
[2019-05-30 23:11] LABS: TROPONIN I < 0.012 ng/mL
[2019-05-31] MEDS: METHYLPREDNISOLONE INJ 125 MG/2 ML SDV IV SCH (05:17)
[2019-05-31 08:04] LABS: HEMATOCRIT 39.1 % (37.9-51.0); HEMOGLOBIN 12.9 g/dL (13.5-17.0); MEAN CORPUSCULAR HEMOGLOBIN 27.8 pg (27.0-33.4); MEAN CORPUSCULAR HGB CONC 32.9 g/dL (32.0-36.0); MEAN CORPUSCULAR VOLUME 84 fl (80-97); PLATELET COUNT 330 10^3/uL (150-450); RED BLOOD COUNT 4.63 10^6/uL (4.35-5.55); RED CELL DISTRIBUTION WIDTH 14.3 % (11.5-14.0)
[2019-05-31] MEDS: IPRATROPIUM/ALBUTEROL 0.5-2.5 MG/3 ML AMPUL NEB SCH ×4 (08:23→21:10)
[2019-05-31 08:27] LABS: WHITE BLOOD COUNT 27.6 10^3/uL (4.0-10.5)
[2019-05-31 08:29] LABS: ABSOLUTE LYMPHOCYTES# (MANUAL) 0.6 10^3/uL (0.5-4.7); ABSOLUTE MONOCYTES # (MANUAL) 1.1 10^3/uL (0.1-1.4); BASOPHILS % (MANUAL) 0 % (0-2); EOSINOPHILS % (MANUAL) 0 % (0-6); LYMPHOCYTES % (MANUAL) 2 % (13-45); MONOCYTES % (MANUAL) 4 % (3-13); SEGMENTED NEUTROPHILS % (MAN) 94 % (42-78); TOTAL CELLS COUNTED 100
[2019-05-31 08:30] LABS: ANISOCYTOSIS SLIGHT; PLATELET COMMENT ADEQUATE; POLYCHROMASIA SLIGHT; TEAR DROP CELLS SLIGHT
[2019-05-31] MEDS: ENOXAPARIN SODIUM INJ 40 MG/0.4 ML DISP.SYRIN SUBCUT SCH (09:34)
[2019-05-31] MEDS: LEVOFLOXACIN 500 MG/D5W RTU 500 MG/100 ML RTUPB IV SCH (09:35)
[2019-05-31] MEDS: FAMOTIDINE 20 MG TABLET PO SCH ×2 (09:35→21:51)
--- NOTE | 2019-05-31 12:47 | PDOC PROGRESS REPORT ---
Subjective Progress Note for:: 05/31/19 Subjective:: Patient is feeling better still have a cough but no wheezing Patient's denied any chest pain denied any nausea no vomiting no abdominal pain She is denied any urinary symptoms Patient having no fever but elevated white count most likely steroid Reason For Visit: COPD ACUTE Physical Exam Vital Signs: Temp Pulse Resp BP Pulse Ox 98.4 F 90 16 134/77 H 95 05/31/19 07:47 05/31/19 12:15 05/31/19 12:15 05/31/19 07:47 05/31/19 12:15 Intake & Output 05/30/19 05/31/19 06/01/19 06:59 06:59 06:59 Intake Total 163 1171 100 Output Total 1 Balance 163 1170 100 Weight 80.739 kg 71 kg General appearance: PRESENT: no acute distress, well-developed, well-nourished Head exam: PRESENT: atraumatic, normocephalic Eye exam: PRESENT: conjunctiva pink, EOMI, PERRLA. ABSENT: scleral icterus Ear exam: PRESENT: normal external ear exam Mouth exam: PRESENT: moist, tongue midline Neck exam: PRESENT: full ROM. ABSENT: carotid bruit, JVD, lymphadenopathy, thyromegaly Respiratory exam: PRESENT: clear to auscultation jamila Cardiovascular exam: PRESENT: RRR. ABSENT: diastolic murmur, rubs, systolic murmur Pulses: PRESENT: normal dorsalis pedis pul, +2 pedal pulses bilateral Vascular exam: PRESENT: normal capillary refill GI/Abdominal exam: PRESENT: normal bowel sounds, soft. ABSENT: distended, guarding, mass, organolmegaly, rebound, tenderness Rectal exam: PRESENT: deferred Musculoskeletal exam: PRESENT: ambulatory Neurological exam: PRESENT: alert, awake, oriented to person, oriented to place, oriented to time, oriented to situation, CN II-XII grossly intact. ABSENT: motor sensory deficit Psychiatric exam: PRESENT: appropriate affect, normal mood. ABSENT: homicidal ideation, suicidal ideation Skin exam: PRESENT: dry, intact, warm. ABSENT: cyanosis, rash Results Laboratory Results: 05/31/19 07:23 05/30/19 10:10 05/31/19 05/31/19 07:23 07:23 WBC 27.6 H D RBC 4.63 Hgb 12.9 L Hct 39.1 MCV 84 MCH 27.8 MCHC 32.9 RDW 14.3 H Plt Count 330 Seg Neutrophils % Not Reportable Magnesium 2.3 05/30/19 10:35 Sputum Gram Stain - Final 05/30/19 10:35 Sputum Sputum Culture - Final 05/30/19 05/30/19 05/30/19 03:20 10:10 10:10 Creatine Kinase 104 CK-MB (CK-2) 0.96 Troponin I < 0.012 < 0.012 05/30/19 05/30/19 05/30/19 16:49 16:49 22:09 Creatine Kinase 82 84 CK-MB (CK-2) 0.89 Troponin I < 0.012 05/30/19 22:09 Creatine Kinase CK-MB (CK-2) 1.11 Troponin I < 0.012 Impressions: Abdomen/Pelvis CT 05/30/19 00:00 IMPRESSION: Moderate left hydronephrosis with an abrupt transition between the dilated renal pelvis and the nondilated left ureter at the level of the ureteropelvic junction. There are no filling defects within the opacified and dilated renal pelvis and calices. In addition, excreted contrast is noted t hroughout the left ureter and there is no delayed uptake (based on review of the prior contrast-enhanced CT) or excretion of the contrast by the left kidney. Chest/Abdomen CTA 05/30/19 00:00 IMPRESSION: 1. Negative examination for pulmonary embolism. 2. Emphysema. 3. Partially imaged hydronephrosis of the left kidney, of uncertain etiology or chronicity. Consider dedicated CT examination of the abdomen to further evaluate. Chest X-Ray 05/30/19 02:49 IMPRESSION: No active disease. Assessment & Plan - Diagnosis (1) COPD exacerbation Is this a current diagnosis for this admission?: Yes Plan: Continues to DuoNeb nebulizer treatments will reduce the IV steroid (2) Hypoxia Is this a current diagnosis for this admission?: Yes Plan: Currently all improving symptoms most likely due to the underlying emphysema (3) Tobacco abuse Is this a current diagnosis for this admission?: Yes (4) Hydronephrosis Qualifiers: Hydronephrosis type: unspecified Qualified Code(s): N13.30 - Unspecified hydronephrosis Is this a current diagnosis for this admission?: Yes Plan: Patient is currently denied any urinary symptoms follow outpatient urology (5) Respiratory distress Is this a current diagnosis for this admission?: Yes Plan: Currently all stable (6) Leukocytosis Qualifiers: Leukocytosis type: unspecified Qualified Code(s): D72.829 - Elevated white blood cell count, unspecified Is this a current diagnosis for this admission?: Yes Plan: Since already on IV antibiotics currently afebrile most likely related to the steroid-induced we will continues to cover with antibiotics and reduce the steroid - Time Time Spent with patient: 15-24 minutes Medications reviewed and adjusted accordingly: Yes Anticipated discharge: Home Within: Other - Plan Summary Plan Summary: Reduce the steroid continues to IV antibiotic
[2019-05-31] MEDS ORDERED: METHYLPREDNISOLONE INJ 125 MG/2 ML SDV IV SCH (22:00)
[2019-05-31] MEDS ORDERED: METHYLPREDNISOLONE INJ 40 MG/1 ML SDV IV SCH (22:00)
[2019-06-01 05:46] LABS: HEMATOCRIT 40.2 % (37.9-51.0); MEAN CORPUSCULAR HEMOGLOBIN 27.3 pg (27.0-33.4); MEAN CORPUSCULAR HGB CONC 32.3 g/dL (32.0-36.0); MEAN CORPUSCULAR VOLUME 85 fl (80-97); PLATELET COUNT 319 10^3/uL (150-450); RED BLOOD COUNT 4.75 10^6/uL (4.35-5.55); RED CELL DISTRIBUTION WIDTH 14.4 % (11.5-14.0); WHITE BLOOD COUNT 21.7 10^3/uL (4.0-10.5)
[2019-06-01 05:54] LABS: ANION GAP 8 (5-19); BLOOD UREA NITROGEN 22 mg/dL (7-20); CALCIUM 9.7 mg/dL (8.4-10.2); CARBON DIOXIDE 27 mmol/L (22-30); CHLORIDE 103 mmol/L (98-107); GLUCOSE 118 mg/dL (75-110); POTASSIUM 5.4 mmol/L (3.6-5.0)
[2019-06-01 06:05] LABS: ABSOLUTE LYMPHOCYTES# (MANUAL) 1.7 10^3/uL (0.5-4.7); ABSOLUTE MONOCYTES # (MANUAL) 1.5 10^3/uL (0.1-1.4); ANISOCYTOSIS SLIGHT; BASOPHILS % (MANUAL) 0 % (0-2); EOSINOPHILS % (MANUAL) 0 % (0-6); LYMPHOCYTES % (MANUAL) 7 % (13-45); MONOCYTES % (MANUAL) 7 % (3-13); OVALOCYTES SLIGHT; PLATELET COMMENT ADEQUATE; SEGMENTED NEUTROPHILS % (MAN) 85 % (42-78); TOTAL CELLS COUNTED 100
[2019-06-01] MEDS: IPRATROPIUM/ALBUTEROL 0.5-2.5 MG/3 ML AMPUL NEB SCH ×4 (07:36→20:00)
[2019-06-01] MEDS: LEVOFLOXACIN 500 MG TABLET PO SCH (09:35)
[2019-06-01] MEDS: FAMOTIDINE 20 MG TABLET PO SCH ×2 (09:35→21:33)
[2019-06-01] MEDS: ENOXAPARIN SODIUM INJ 40 MG/0.4 ML DISP.SYRIN SUBCUT SCH (09:35)
[2019-06-01] MEDS: PREDNISONE 20 MG TABLET PO SCH (09:35)
--- NOTE | 2019-06-01 15:28 | PDOC PROGRESS REPORT ---
Subjective Progress Note for:: 06/01/19 Subjective:: Patient is currently doing well She is denied any chest pain no short of breath No fever no chills White count is coming down Discussed with the Dr. Bain and suggest that continues to current medications follow outpatients for the emphysema Reason For Visit: COPD ACUTE Physical Exam Vital Signs: Temp Pulse Resp BP Pulse Ox 97.7 F 83 17 128/78 H 96 06/01/19 11:28 06/01/19 12:23 06/01/19 12:23 06/01/19 11:28 06/01/19 11:28 Intake & Output 05/31/19 06/01/19 06/02/19 06:59 06:59 06:59 Intake Total 1171 1790 600 Output Total 1 Balance 1170 1790 600 Weight 71 kg 72.6 kg General appearance: PRESENT: no acute distress, well-developed, well-nourished Head exam: PRESENT: atraumatic, normocephalic Eye exam: PRESENT: conjunctiva pink, EOMI, PERRLA. ABSENT: scleral icterus Ear exam: PRESENT: normal external ear exam Mouth exam: PRESENT: moist, tongue midline Neck exam: PRESENT: full ROM. ABSENT: carotid bruit, JVD, lymphadenopathy, thyromegaly Respiratory exam: PRESENT: clear to auscultation jamila Cardiovascular exam: PRESENT: RRR. ABSENT: diastolic murmur, rubs, systolic murmur Pulses: PRESENT: normal dorsalis pedis pul, +2 pedal pulses bilateral Vascular exam: PRESENT: normal capillary refill GI/Abdominal exam: PRESENT: normal bowel sounds, soft. ABSENT: distended, guarding, mass, organolmegaly, rebound, tenderness Rectal exam: PRESENT: deferred Musculoskeletal exam: PRESENT: ambulatory Neurological exam: PRESENT: alert, awake, oriented to person, oriented to place, oriented to time, oriented to situation, CN II-XII grossly intact. ABSENT: motor sensory deficit Psychiatric exam: PRESENT: appropriate affect, normal mood. ABSENT: homicidal ideation, suicidal ideation Skin exam: PRESENT: dry, intact, warm. ABSENT: cyanosis, rash Results Laboratory Results: 06/01/19 05:16 06/01/19 05:16 06/01/19 06/01/19 05:16 05:16 WBC 21.7 H RBC 4.75 Hgb 13.0 L Hct 40.2 MCV 85 MCH 27.3 MCHC 32.3 RDW 14.4 H Plt Count 319 Seg Neutrophils % Not Reportable Sodium 138.0 Potassium 5.4 H Chloride 103 Carbon Dioxide 27 Anion Gap 8 BUN 22 H Creatinine 0.86 Est GFR ( Amer) > 60 Glucose 118 H Calcium 9.7 05/30/19 10:35 Sputum Gram Stain - Final 05/30/19 10:35 Sputum Sputum Culture - Final 05/30/19 05/30/19 05/30/19 03:20 10:10 10:10 Creatine Kinase 104 CK-MB (CK-2) 0.96 Troponin I < 0.012 < 0.012 05/30/19 05/30/19 05/30/19 16:49 16:49 22:09 Creatine Kinase 82 84 CK-MB (CK-2) 0.89 Troponin I < 0.012 05/30/19 22:09 Creatine Kinase CK-MB (CK-2) 1.11 Troponin I < 0.012 Impressions: Abdomen/Pelvis CT 05/30/19 00:00 IMPRESSION: Moderate left hydronephrosis with an abrupt transition between the dilated renal pelvis and the nondilated left ureter at the level of the ureteropelvic junction. There are no filling defects within the opacified and dilated renal pelvis and calices. In addition, excreted contrast is noted throughout the left ureter and there is no delayed uptake (based on review of the prior contrast-enhanced CT) or excretion of the contrast by the left kidney. Chest/Abdomen CTA 05/30/19 00:00 IMPRESSION: 1. Negative examination for pulmonary embolism. 2. Emphysema. 3. Partially imaged hydronephrosis of the left kidney, of uncertain etiology or chronicity. Consider dedicated CT examination of the abdomen to further evaluate. Chest X-Ray 05/30/19 02:49 IMPRESSION: No active disease. Assessment & Plan - Diagnosis (1) COPD exacerbation Is this a current diagnosis for this admission?: Yes Plan: Cutdown the p.o. steroids continue some nebulizer treatments (2) Hypoxia Is this a current diagnosis for this admission?: Yes Plan: Currently off the oxygen's (3) Tobacco abuse Is this a current diagnosis for this admission?: Yes Plan: Discussed with the patient about smoking counseling (4) Hydronephrosis Qualifiers: Hydronephrosis type: unspecified Qualified Code(s): N13.30 - Unspecified hydronephrosis Is this a current diagnosis for this admission?: Yes Plan: Is to follow outpatients urology (5) Respiratory distress Is this a current diagnosis for this admission?: Yes Plan: Currently all resolving (6) Leukocytosis Qualifiers: Leukocytosis type: unspecified Qualified Code(s): D72.829 - Elevated white blood cell count, unspecified Is this a current diagnosis for this admission?: Yes Plan: Currently all improving - Time Time Spent with patient: 15-24 minutes Medications reviewed and adjusted accordingly: Yes Anticipated discharge: Home Within: within 24 hours - Plan Summary Plan Summary: If the patient's remains stable white count is coming down afebrile's probably discharge home with p.o. antibiotics
--- NOTE | 2019-06-01 16:20 | PDOC CONSULTATION ---
Consultation Consult Date: 05/31/19 Attending physician:: SANTY MORATAYA Provider Consulted: MAGNOLIA RAHMAN Consult reason:: resp failure History of Present Illness Admission Date/PCP: 05/30/19 06:45 SANTY MORATAYA MD History of Present Illness: KRISTEN HERNANDEZ is a 48 year old maleWith a week history of increasing shortness of breath presented to the emergency room after several days of productive green phlegm as well as shortness of breath no hemoptysis PPD status unknown no history chronic lung disease as a child or adolescent.He denies being exposed to anyone else who is ill. He admits to exposure to large amounts of passive smoke as a child as well as an adult he is self smoked a pack a day for approximately 40 years and smoked up until the time of admission. Despite the fact that he uses oxygen and wears oxygen at home. 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 Past Medical History Pulmonary Medical History: Reports: Chronic Obstructive Pulmonary Disease (COPD) Neurological Medical History: Denies: Multiple Sclerosis Endocrine Medical History: Denies: Hyperthyroidism, Hypothyroidism, Obesity Renal/ Medical History: Denies: End Stage Renal Disease GI Medical History: Denies: Cirrhosis, Ulcerative Colitis Musculoskeltal Medical History: Denies: Fibromyalgia Psychiatric Medical History: Reports: Tobacco Dependency Denies: Depression Traumatic Medical History: Denies: Traumatic Brain Injury Hematology: Denies: Hemophilia, Sickle Cell Disease Infectious Medical History: Denies: HIV Social History Information Source: Patient, [facility] Records 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 Lives with: Family Smoking Status: Current Every Day Smoker Cigarettes Packs Per Day: 1 Cigars Per Day: 0 Pipes Per Day: 0 Number of Years Smokin Last Time Smoked: 05/28/2019 Passive smoke exposure as: Both Frequency of Alcohol Use: None Hx Recreational Drug Use: No Hx Prescription Drug Abuse: No Do you have pets?: Yes Have you had any respiratory illnesses as a child?: No Have you been exposed to any sick contacts recently?: No Have you had any recent respiratory illnesses?: Yes Have you travelled outside of [place] in the past 12 months?: No - Advance Directive Resuscitation Status: Full Code Family History Family History: CAD, Malignancy Parental Family History Reviewed: Yes Children Family History Reviewed: Yes Sibling(s) Family History Reviewed.: Yes Medication/Allergy Home Medications: No Home Medications 05/30/19 Allergies/Adverse Reactions: BEESTINGS Allergy (Uncoded 08/28/18 13:44) Anaphylaxis Review of Systems All systems: reviewed and no additional remarkable complaints except as stated Physical Exam Vital Signs: Temp Pulse Resp BP Pulse Ox 98.4 F 93 16 134/77 H 95 05/31/19 07:47 05/31/19 08:23 05/31/19 08:23 05/31/19 07:47 05/31/19 08:23 Intake & Output 05/30/19 05/31/19 06/01/19 06:59 06:59 06:59 Intake Total 163 1171 Output Total 1 Balance 163 1170 Weight 80.739 kg 71 kg General appearance: PRESENT: no acute distress, cooperative, disheveled, thin, well-developed, well-nourished Head exam: PRESENT: atraumatic, normocephalic Eye exam: PRESENT: conjunctiva pale, EOMI. ABSENT: nystagmus, periorbital swelling, scleral icterus Mouth exam: PRESENT: moist, neck supple, tongue midline Teeth exam: PRESENT: poor dentation Neck exam: ABSENT: carotid bruit, full ROM, JVD, lymphadenopathy, meningismus, tenderness, thyromegaly, tracheal deviation, tracheostomy, other Respiratory exam: PRESENT: decreased breath sounds, prolonged expiratory phas, rales, rhonchi, symmetrical, unlabored, wheezes. ABSENT: retraction, stridor, tachypnea Cardiovascular exam: PRESENT: RRR, +S1. ABSENT: tachycardia Pulses: PRESENT: normal radial pulses GI/Abdominal exam: PRESENT: normal bowel sounds, soft. ABSENT: distended, guarding, mass, rebound, tenderness Extremities exam: ABSENT: calf tenderness, clubbing, joint swelling, pedal edema, tenderness, +1 edema Musculoskeletal exam: ABSENT: deformity, dislocation Neurological exam: PRESENT: alert, awake Psychiatric exam: PRESENT: appropriate affect Skin exam: PRESENT: dry, warm Results Laboratory Results: 05/31/19 07:23 05/30/19 10:10 05/30/19 05/31/19 05/31/19 10:10 07:23 07:23 WBC 27.6 H D RBC 4.63 Hgb 12.9 L Hct 39.1 MCV 84 MCH 27.8 MCHC 32.9 RDW 14.3 H Plt Count 330 Seg Neutrophils % Not Reportable Sodium 136.1 L Potassium 4.1 Chloride 99 Carbon Dioxide 23 Anion Gap 14 BUN 15 Creatinine 0.81 Est GFR ( Amer) > 60 Glucose 287 H Calcium 9.4 Magnesium 2.3 05/30/19 05/30/19 05/30/19 03:20 10:10 10:10 Creatine Kinase 104 CK-MB (CK-2) 0.96 Troponin I < 0.012 < 0.012 05/30/19 05/30/19 05/30/19 16:49 16:49 22:09 Creatine Kinase 82 84 CK-MB (CK-2) 0.89 Troponin I < 0.012 05/30/19 22:09 Creatine Kinase CK-MB (CK-2) 1.11 Troponin I < 0.012 Impressions: Abdomen/Pelvis CT 05/30/19 00:00 IMPRESSION: Moderate left hydronephrosis with an abrupt transition between the dilated renal pelvis and the nondilated left ureter at the level of the ureteropelvic junction. There are no filling defects within the opacified and dilated renal pelvis and calices. In addition, excreted contrast is noted throughout the left ureter and there is no delayed uptake (based on review of the prior contrast-enhanced CT) or excretion of the contrast by the left kidney. Chest/Abdomen CTA 05/30/19 00:00 IMPRESSION: 1. Negative examination for pulmonary embolism. 2. Emphysema. 3. Partially imaged hydronephrosis of the left kidney, of uncertain etiology or chronicity. Consider dedicated CT examination of the abdomen to further evaluate. Chest X-Ray 05/30/19 02:49 IMPRESSION: No active disease. Assessment & Plan - Diagnosis (1) COPD exacerbation Is this a current diagnosis for this admission?: Yes Plan: Antibiotics inhaled corticosteroids long-acting beta agonist long-acting muscarinic agent short acting beta agonist as you have initiated (2) Hydronephrosis Qualifiers: Hydronephrosis type: unspecified Qualified Code(s): N13.30 - Unspecified hydronephrosis Is this a current diagnosis for this admission?: Yes Plan: per abbdominal CT,L kidney (3) Leukocytosis Qualifiers: Leukocytosis type: bandemia Qualified Code(s): D72.825 - Bandemia Is this a current diagnosis for this admission?: Yes Plan: Green sputum no positive cultures thus far white count is trending down since admission continue current empiric therapy (4) Respiratory distress Is this a current diagnosis for this admission?: Yes Plan: Improving with bronchodilators cigarette cessation supplemental oxygen (5) Tobacco abuse Is this a current diagnosis for this admission?: Yes Plan: Stop smoking discussed at length risk and dangers associated with continued tobacco use
[2019-06-02 04:23] LABS: ABSOLUTE BASOPHILS # (AUTO) 0.1 10^3/uL (0.0-0.2); ABSOLUTE EOSINOPHILS # (AUTO) 0.3 10^3/uL (0.0-0.6); ABSOLUTE LYMPHOCYTES (AUTO) 2.6 10^3/uL (0.5-4.7); ABSOLUTE NEUT (AUTO) 11.1 10^3/uL (1.7-8.2); BASOPHILS % (AUTO) 0.8 % (0-2); EOSINOPHILS % (AUTO) 1.9 % (0-6); HEMATOCRIT 40.7 % (37.9-51.0); HEMOGLOBIN 13.4 g/dL (13.5-17.0); MEAN CORPUSCULAR HEMOGLOBIN 27.8 pg (27.0-33.4); MEAN CORPUSCULAR HGB CONC 32.8 g/dL (32.0-36.0); MEAN CORPUSCULAR VOLUME 85 fl (80-97); MONOCYTES % (AUTO) 6.7 % (3-13); PLATELET COUNT 307 10^3/uL (150-450); RED BLOOD COUNT 4.81 10^6/uL (4.35-5.55); RED CELL DISTRIBUTION WIDTH 14.3 % (11.5-14.0); SEGMENTED NEUTROPHILS % (AUTO) 73.6 % (42-78); TOTAL CELLS COUNTED % (AUTO) 100 %; WHITE BLOOD COUNT 15.1 10^3/uL (4.0-10.5)
[2019-06-02 04:36] LABS: ANION GAP 8 (5-19); BLOOD UREA NITROGEN 20 mg/dL (7-20); CALCIUM 9.5 mg/dL (8.4-10.2); CARBON DIOXIDE 29 mmol/L (22-30); CHLORIDE 101 mmol/L (98-107); GLUCOSE 99 mg/dL (75-110); POTASSIUM 4.6 mmol/L (3.6-5.0)
[2019-06-02] MEDS: IPRATROPIUM/ALBUTEROL 0.5-2.5 MG/3 ML AMPUL NEB SCH (07:49)
[2019-06-02] MEDS: FAMOTIDINE 20 MG TABLET PO SCH (09:22)
[2019-06-02] MEDS: LEVOFLOXACIN 500 MG TABLET PO SCH (09:22)
[2019-06-02] MEDS: PREDNISONE 20 MG TABLET PO SCH (09:22)
[2019-06-02] MEDS: ENOXAPARIN SODIUM INJ 40 MG/0.4 ML DISP.SYRIN SUBCUT SCH (09:22)
[2019-06-02 09:26] VITALS: BP 123/84
--- NOTE | 2019-06-02 10:48 | PDOC DISCHARGE SUMMARY ---
Impression - Admit/DC Date/PCP Admission Date/Primary Care Provider: 05/30/19 06:45 SANTY MORATAYA MD Discharge Date: 06/02/19 - Discharge Diagnosis (1) COPD exacerbation Is this a current diagnosis for this admission?: Yes (2) Hypoxia Is this a current diagnosis for this admission?: Yes (3) Tobacco abuse Is this a current diagnosis for this admission?: Yes (4) Hydronephrosis Is this a current diagnosis for this admission?: Yes (5) Respiratory distress Is this a current diagnosis for this admission?: Yes (6) Leukocytosis Is this a current diagnosis for this admission?: Yes - Assessment Summary: This is a 48-year-old male is present in the emergency department with the shortness of the breath and diagnosed with the emphysema COPD acute exacerbations Patient was treated with IV Solu-Medrol and IV antibiotics Patient seen by Dr. Bain's pulmonary Patient's IV Solu-Medrol was discontinued as per the previous steroid Is otherwise remained stable no require oxygen's doing well walking the hallway without any problems His white count is also coming down and remain afebrile At this points patient's desire to go home's discussed with the patient about all medications prescribed today discuss about the smoking counseling Follow outpatients Dr. Bain Follow in office 1 week repeat the CBC and Chem-7 Cussed with the patient and the family about the CT scan findings including the abdominal finding about hydronephrosis Patient's at this point will make appointment to urology outpatients currently denied any urinary symptoms - Additional Information Resuscitation Status: Full Code Discharge Diet: As Tolerated Discharge Activity: Activity As Tolerated Referrals: MAGNOLIA BAIN MD [ACTIVE STAFF] - 06/15/19 9:00 am (office will send you a new patient packet, please fill out and bring to your appoinment ) SANTY MORATAYA MD [Primary Care Provider] - 06/06/19 2:30 pm (Follow-up Wednesday or Wednesday.) Prescriptions: Fluticasone/Salmeterol [Advair 250-50 Diskus 14 Dose/Diskus] 1 inh IH Q12H #1 inhaler Prednisone [Deltasone 20 mg Tablet] 20 mg PO DAILY #5 tablet Ipratropium/Albuterol Sulfate [Duoneb 3 ml Ampul] 3 ml NEB [id number] PRN #120 vial.neb PRN Reason: Levofloxacin [Levaquin 500 mg Tablet] 500 mg PO DAILY #7 tablet Nebulizer [Nebulizer Machine] 1 each ASDIR PRN #1 kit PRN Reason: Tiotropium [place] [Spiriva Respimat] 4 gm IH DAILY #1 mist.inhal Home Medications: Fluticasone/Salmeterol [Advair 250-50 Diskus 14 Dose/Diskus] 1 inh IH Q12H #1 inhaler 06/02/19 Ipratropium/Albuterol Sulfate [Duoneb 3 ml Ampul] 3 ml NEB [id number] PRN #120 vial.neb 06/02/19 Levofloxacin [Levaquin 500 mg Tablet] 500 mg PO DAILY #7 tablet 06/02/19 Nebulizer [Nebulizer Machine] 1 each ASDIR PRN #1 kit 06/02/19 Prednisone [Deltasone 20 mg Tablet] 20 mg PO DAILY #5 tablet 06/02/19 Tiotropium [place] [Spiriva Respimat] 4 gm IH DAILY #1 mist.inhal 06/02/19 History of Present Illiness History of Present Illness: KRISTEN HERNANDEZ is a 50 year old male 48-year-old male with a history of the COPD chronic smoker came to the emergency department with a complaining of a cough congestion short of breath no respiratory distress Patient was complaining some cough congestion since last 1 week in the last 3 days patient is feeling more short of breath Emergency department patient was giving the several respiratory treatments put on oxygen's and patients feel better now At this point patient decided to admit in the hospital for the COPD acute exacerbations discuss with the patient's and the family and the bedside in the emergency department Physical Exam Vital Signs: Temp Pulse Resp BP Pulse Ox 97.8 F 72 14 126/77 H 95 06/02/19 08:49 06/02/19 08:49 06/02/19 08:49 06/02/19 08:49 06/02/19 08:49 Intake & Output 06/01/19 06/02/19 06/03/19 06:59 06:59 06:59 Intake Total 1789 1979 Balance 1789 1979 Weight 72.6 kg 72.1 kg Results Laboratory Results: WBC 15.1 10^3/uL (4.0-10.5) H 06/02/19 04:11 RBC 4.81 10^6/uL (4.35-5.55) 06/02/19 04:11 Hgb 13.4 g/dL (13.5-17.0) L 06/02/19 04:11 Hct 40.7 % (37.9-51.0) 06/02/19 04:11 MCV 85 fl (80-97) 06/02/19 04:11 MCH 27.8 pg (27.0-33.4) 06/02/19 04:11 MCHC 32.8 g/dL (32.0-36.0) 06/02/19 04:11 RDW 14.3 % (11.5-14.0) H 06/02/19 04:11 Plt Count 307 10^3/uL (150-450) 06/02/19 04:11 Lymph % (Auto) 17.0 % (13-45) 06/02/19 04:11 Garden % (Auto) 6.7 % (3-13) 06/02/19 04:11 Eos % (Auto) 1.9 % (0-6) 06/02/19 04:11 Baso % (Auto) 0.8 % (0-2) 06/02/19 04:11 Absolute Neuts (auto) 11.1 10^3/uL (1.7-8.2) H 06/02/19 04:11 Absolute Lymphs (auto) 2.6 10^3/uL (0.5-4.7) 06/02/19 04:11 Absolute Monos (auto) 1.0 10^3/uL (0.1-1.4) 06/02/19 04:11 Absolute Eos (auto) 0.3 10^3/uL (0.0-0.6) 06/02/19 04:11 Absolute Basos (auto) 0.1 10^3/uL (0.0-0.2) 06/02/19 04:11 Total Counted 100 06/01/19 05:16 Seg Neutrophils % 73.6 % (42-78) 06/02/19 04:11 Seg Neuts % (Manual) 85 % (42-78) H 06/01/19 05:16 Lymphocytes % (Manual) 7 % (13-45) L 06/01/19 05:16 Atypical Lymphs % 1 % (0) 06/01/19 05:16 Monocytes % (Manual) 7 % (3-13) 06/01/19 05:16 Eosinophils % (Manual) 0 % (0-6) 06/01/19 05:16 Basophils % (Manual) 0 % (0-2) 06/01/19 05:16 Abs Neuts (Manual) 18.4 10^3/uL (1.7-8.2) H 06/01/19 05:16 Abs Lymphs (Manual) 1.7 10^3/uL (0.5-4.7) 06/01/19 05:16 Abs Monocytes (Manual) 1.5 10^3/uL (0.1-1.4) H 06/01/19 05:16 Absolute Eos (Manual) 0.0 10^3/uL (0.0-0.6) 06/01/19 05:16 Abs Basophils (Manual) 0.0 10^3/uL (0.0-0.2) 06/01/19 05:16 Platelet Comment ADEQUATE 06/01/19 05:16 Polychromasia SLIGHT 05/31/19 07:23 Anisocytosis SLIGHT 06/01/19 05:16 Tear Drop Cells SLIGHT 05/31/19 07:23 Ovalocytes SLIGHT 06/01/19 05:16 Carbonic Acid 1.33 mmol/L (1.05-1.35) 05/30/19 03:58 HCO3/H2CO3 Ratio 20:1 05/30/19 03:58 ABG pH 7.40 (7.35-7.45) 05/30/19 03:58 ABG pCO2 44.3 mmHg (35-45) 05/30/19 03:58 ABG pO2 63.1 mmHg (80-100) L 05/30/19 03:58 ABG HCO3 26.8 mmol/L (20-24) H 05/30/19 03:58 ABG Total CO2 28.2 mmol/L (23-27) H 05/30/19 03:58 ABG O2 Saturation 92.1 % (94-98) L 05/30/19 03:58 ABG Base Excess 1.6 mmol/L 05/30/19 03:58 FiO2 6L 05/30/19 03:58 Sodium 137.5 mmol/L (137-145) 06/02/19 03:43 Potassium 4.6 mmol/L (3.6-5.0) 06/02/19 03:43 Chloride 101 mmol/L (98-107) 06/02/19 03:43 Carbon Dioxide 29 mmol/L (22-30) 06/02/19 03:43 Anion Gap 8 (5-19) 06/02/19 03:43 BUN 20 mg/dL (7-20) 06/02/19 03:43 Creatinine 0.92 mg/dL (0.52-1.25) 06/02/19 03:43 Est GFR ( Amer) > 60 (>60) 06/02/19 03:43 Est GFR (MDRD) Non-Af > 60 (>60) 06/02/19 03:43 Glucose 99 mg/dL (75-110) 06/02/19 03:43 Calcium 9.5 mg/dL (8.4-10.2) 06/02/19 03:43 Magnesium 2.3 mg/dL (1.6-2.3) 05/31/19 07:23 Total Bilirubin 0.4 mg/dL (0.2-1.3) 05/30/19 03:20 Direct Bilirubin 0.1 mg/dL (0.0-0.4) 05/30/19 03:20 Neonat Total Bilirubin Not Reportable 05/30/19 03:20 Neonat Direct Bilirubin Not Reportable 05/30/19 03:20 Neonat Indirect Bili Not Reportable 05/30/19 03:20 AST 23 U/L (17-59) 05/30/19 03:20 ALT 14 U/L (<50) 05/30/19 03:20 Alkaline Phosphatase 48 U/L (38-126) 05/30/19 03:20 Creatine Kinase 84 U/L (55-170) 05/30/19 22:09 CK-MB (CK-2) 1.11 ng/mL (<4.55) 05/30/19 22:09 Troponin I < 0.012 ng/mL 05/30/19 22:09 Total Protein 7.5 g/dL (6.3-8.2) 05/30/19 03:20 Albumin 4.4 g/dL (3.5-5.0) 05/30/19 03:20 05/30/19 05/30/19 05/30/19 03:20 10:10 16:49 CK-MB (CK-2) 0.96 0.89 Troponin I < 0.012 < 0.012 < 0.012 05/30/19 22:09 CK-MB (CK-2) 1.11 Troponin I < 0.012 Impressions: Abdomen/Pelvis CT 05/30/19 00:00 IMPRESSION: Moderate left hydronephrosis with an abrupt transition between the dilated renal pelvis and the nondilated left ureter at the level of the ureteropelvic junction. There are no filling defects within the opacified and dilated renal pelvis and calices. In addition, excreted contrast is noted throughout the left ureter and there is no delayed uptake (based on review of the prior contrast-enhanced CT) or excretion of the contrast by the left kidney. Chest/Abdomen CTA 05/30/19 00:00 IMPRESSION: 1. Negative examination for pulmonary embolism. 2. Emphysema. 3. Partially imaged hydronephrosis of the left kidney, of uncertain etiology or chronicity. Consider dedicated CT examination of the abdomen to further evaluate. Chest X-Ray 05/30/19 02:49 IMPRESSION: No active disease. Stroke Is this a Stroke Patient?: No Acute Heart Failure - Is this a Heart Failure Patient?: No
== END 2019-06-02 09:49 | disposition home or self-care (01) | DRG 191 ==
LOC: ER 02:15 → EH 05:32 → OBSVTOIN 06:45 → 4S 17:18
PROVIDERS: ADMIT Family Medicine; ATTEND Family Medicine
DX: J43.9 Emphysema, unspecified (principal); N13.30 Unspecified hydronephrosis; F17.210 Nicotine dependence, cigarettes, uncomplicated; D72.829 Elevated white blood cell count, unspecified; Z99.81 Dependence on supplemental oxygen; Z82.49 Family history of ischemic heart disease and other diseases of the circulatory system; Z91.030 Bee allergy status
CPT/HCPCS: 36415; 71045; 71275; 74176; 80048; 80053; 82550; 82553; 82803; 83735; 84484; 85025; 87040; 87070; 87205; 93005; 93010; 94640; 96365; 96375; 96376; 99285; J1650; J1956; J2920; J2930; J3475; J7512; J7620

== ENCOUNTER 2020-01-28 00:58 | Inpatient (IN) | payer OTHER ==
[2020-01-28] MEDS ORDERED: ALBUTEROL SULFATE 0.083% NEB 2.5 MG/3 ML AMPUL NEB ONE (01:10)
[2020-01-28 01:27] LABS: ABSOLUTE BASOPHILS # (AUTO) 0.1 10^3/uL (0.0-0.2); ABSOLUTE EOSINOPHILS # (AUTO) 0.5 10^3/uL (0.0-0.6); ABSOLUTE LYMPHOCYTES (AUTO) 2.5 10^3/uL (0.5-4.7); ABSOLUTE MONOCYTES (AUTO) 0.7 10^3/uL (0.1-1.4); ABSOLUTE NEUT (AUTO) 5.4 10^3/uL (1.7-8.2); BASOPHILS % (AUTO) 0.9 % (0-2); EOSINOPHILS % (AUTO) 5.7 % (0-6); HEMATOCRIT 41.2 % (37.9-51.0); HEMOGLOBIN 13.7 g/dL (13.5-17.0); LYMPHOCYTES % (AUTO) 26.8 % (13-45); MEAN CORPUSCULAR HEMOGLOBIN 28.4 pg (27.0-33.4); MEAN CORPUSCULAR HGB CONC 33.4 g/dL (32.0-36.0); MEAN CORPUSCULAR VOLUME 85 fl (80-97); MONOCYTES % (AUTO) 7.7 % (3-13); PLATELET COUNT 304 10^3/uL (150-450); RED BLOOD COUNT 4.84 10^6/uL (4.35-5.55); RED CELL DISTRIBUTION WIDTH 13.8 % (11.5-14.0); SEGMENTED NEUTROPHILS % (AUTO) 58.9 % (42-78); TOTAL CELLS COUNTED % (AUTO) 100 %; WHITE BLOOD COUNT 9.2 10^3/uL (4.0-10.5)
[2020-01-28 01:28] LABS: VENOUS BLOOD BASE EXCESS -0.7 mmol/L; VENOUS BLOOD HCO3 27.4 mmol/L (20-32); VENOUS BLOOD PCO2 59.6 mmHg (35-63); VENOUS BLOOD PH 7.28 (7.30-7.42)
[2020-01-28 01:48] LABS: ALBUMIN 4.5 g/dL (3.5-5.0); ALKALINE PHOSPHATASE 64 U/L (38-126); ANION GAP 9 (5-19); ASPARTATE AMINO TRANSFERASE 37 U/L (17-59); BILIRUBIN,TOTAL 0.3 mg/dL (0.2-1.3); BLOOD UREA NITROGEN 19 mg/dL (7-20); CALCIUM 8.9 mg/dL (8.4-10.2); CARBON DIOXIDE 27 mmol/L (22-30); CHLORIDE 105 mmol/L (98-107); GLUCOSE 135 mg/dL (75-110); POTASSIUM 3.6 mmol/L (3.6-5.0); TOTAL PROTEIN 7.6 g/dL (6.3-8.2)
--- NOTE | 2020-01-28 02:20 | RADIOLOGY REPORT (SQ) ---
EXAM DESCRIPTION: XR CHEST 1 VIEW COMPLETED DATE/TME: 01/28/2020 01:05 CLINICAL HISTORY: 49 years Male, cough, o2 sat 84%, sob COMPARISON: 05/30/19 NUMBER OF VIEWS/TECHNIQUE: 1/AP FINDINGS: Adequate lung volume, clear parenchyma, normal cardiac silhouette, and intact bony thorax. IMPRESSION: No acute cardiopulmonary findings.
[2020-01-28 02:55] LABS: INTERNATIONAL RATION (INR) 0.97; PROTHROMBIN TIME 12.9 SEC (11.4-15.4)
--- NOTE | 2020-01-28 03:55 | ER Document Report ---
Entered by ANILA BHARDWAJ SCRIBE 01/28/20 0108 Acting as scribe for:LO PARISI IV, MD ED Respiratory Problem - General Chief Complaint: Shortness Of Breath Stated Complaint: SHORTNESS OF BREATH Mode of Arrival: Medic Information source: Patient, Emergency Med Personnel Notes: This 49 year old male patient with a history of COPD brought in by EMS from home presents to the ED today with complaints of shortness of breath for the past x2 days, worse today. Per EMS, patient was found at home diaphoretic and tripoding with O2 sats of 84% via RA. EMS administered x2 DuoNeb treatments, 125 mg Solumedrol, and 2 g Magnesium. Patient's O2 sats increased to 89% with breathing treatments. Patient is a former smoker. Denies use of ETOH or recreational drugs. TRAVEL OUTSIDE OF THE [place] IN LAST 30 DAYS: No - Related Data Allergies/Adverse Reactions: BEESTINGS Allergy (Uncoded 08/28/18 13:44) Anaphylaxis coke cola Allergy (Uncoded 01/28/20 01:03) Past Medical History - General Information source: Patient, [facility] Records - Social History Smoking Status: Former Smoker Cigarette use (# per day): No Chew tobacco use (# tins/day): No Smoking Education Provided: No Frequency of alcohol use: None Drug Abuse: None Lives with: Family Family History: Reviewed & Not Pertinent, CAD, Malignancy Patient has suicidal ideation: No Patient has homicidal ideation: No Pulmonary Medical History: Reports: Hx COPD - Immunizations Hx Diphtheria, Pertussis, Tetanus Vaccination: Yes Review of Systems - Review of Systems Constitutional: No symptoms reported EENT: No symptoms reported Cardiovascular: No symptoms reported Respiratory: See HPI, Short of breath Gastrointestinal: No symptoms reported Genitourinary: No symptoms reported Male Genitourinary: No symptoms reported Musculoskeletal: No symptoms reported Skin: No symptoms reported Hematologic/Lymphatic: No symptoms reported Neurological/Psychological: No symptoms reported -: Yes All other systems reviewed and negative Physical Exam - Vital signs Vitals: Temp Resp Pulse Ox 97.5 F 20 98 01/28/20 01:01 01/28/20 01:01 01/28/20 01:01 Interpretation: Tachycardic, Tachypneic - General General appearance: Alert - HEENT Head: Normocephalic, Atraumatic Eyes: Normal Pupils: PERRL - Respiratory Respiratory status: Respiratory distress, Tachypnea, Tripod position Chest status: Accessory muscle use Breath sounds: Decreased air movement - Diminished breath sounds bilaterally, barely audible, Wheezing - Scant wheezing noted on exam Chest palpation: Normal - Cardiovascular Rhythm: Regular, Tachycardia Heart sounds: Normal auscultation Murmur: No Friction rub: No Gallop: None auscultated - Abdominal Inspection: Normal Distension: No distension Bowel sounds: Normal Tenderness: Nontender - Abdomen soft Organomegaly: No organomegaly - Back Back: Normal, Nontender - Extremities General upper extremity: Normal inspection General lower extremity: Normal inspection - Neurological Neuro grossly intact: Yes Orientation: AAOx4 - Psychological Associated symptoms: Normal affect, Normal mood - Skin Skin Temperature: Warm Skin Moisture: Dry Skin Color: Normal Course - Re-evaluation Re-evalutation: 01/28/20 02:39 Patient states he is feeling better and is not working as hard to breathe. Patient does not appear tachypneic at this time and does not appear to be in acute distress. Results of ED MSE and recommendation of admission discussed with patient. Patient agreed to be admitted. - Vital Signs Vital signs: Temp Pulse Resp BP Pulse Ox 97.5 F 19 114/91 H 97 01/28/20 01:02 01/28/20 03:01 01/28/20 03:00 01/28/20 03:01 - Laboratory Result Diagrams: 01/28/20 01:02 01/28/20 01:02 Laboratory results interpreted by me: 01/28/20 01/28/20 01:02 01:02 VBG pH 7.28 L Glucose 135 H - Diagnostic Test Radiology reviewed: Reports reviewed - EKG Interpretation by Me Additional EKG results interpreted by me: 01/28/20 01:29 EKG obtained on 01/28/2020 at hours was interpreted by this MD. Findings normal sinus rhythm, rate 90, normal axis, P waves proceed QRS complexes, QRS complexes appear narrow, there are no obvious patterns of ST segment elevation or depression present to suggest acute myocardial ischemia or infarction. Impression: Normal sinus rhythm with nonspecific ST segments. - Consults dr. Schaeffer Time consulted: 02:32 - Dr. Schaeffer agreed to admit patient on behalf of Dr. Malik Reason for consultation: 01/28/20 02:37 COPD exacerbation Discharge - Discharge Clinical Impression: COPD exacerbation Condition: Good Disposition: ADMITTED INPATIENT Admitting Provider: [facility] Admitted: [facility] I personally performed the services described in the documentation, reviewed and edited the documentation which was dictated to the scribe in my presence, and it accurately records my words and actions.
--- NOTE | 2020-01-28 11:18 | EKG REPORT ---
SEVERITY:- NORMAL ECG - SINUS RHYTHM : Confirmed by: Vance Faulkner 28-Jan-2020 11:17:30
--- NOTE | 2020-01-28 11:21 | PDOC H&P ---
History of Present Illness Admission Date/PCP: 01/28/20 03:58 SANTY MORATAYA MD Patient complains of: Difficulty with breathing History of Present Illness: KRISTEN HERNANDEZ is a 49 year old male patient of Dr. Morataya presented to the ED with progressive worsening of difficulty with breathing x 3 days. Patient reported associated productive cough with whitish sputum. No fever or chills. No nausea or vomiting. No significant associated chest pain. He claimed smoking cessation since May, following admission to this hospital for similar presentation. His initial ED evaluation was significant for tachypnea, tachycardia, and elevated blood pressure. He was advised admission for further evaluation and management. His morbidities are as listed below. Patient demonstrated elevation of his serum lactic acid level. Past Medical History Pulmonary Medical History: Reports: Chronic Obstructive Pulmonary Disease (COPD) Endocrine Medical History: Denies: Hyperthyroidism, Hypothyroidism Renal/ Medical History: Denies: End Stage Renal Disease GI Medical History: Denies: Cirrhosis, Ulcerative Colitis Musculoskeltal Medical History: Denies: Fibromyalgia Psychiatric Medical History: Denies: Depression Traumatic Medical History: Denies: Traumatic Brain Injury Hematology: Denies: Hemophilia, Sickle Cell Disease Infectious Medical History: Denies: HIV Social History Lives with: Family Smoking Status: Former Smoker Number of Years Smokin Frequency of Alcohol Use: None Hx Recreational Drug Use: No Drugs: None Hx Prescription Drug Abuse: No - Advance Directive Resuscitation Status: Full Code Family History Family History: Reviewed & Not Pertinent, CAD, Malignancy Parental Family History Reviewed: Yes Children Family History Reviewed: Yes Sibling(s) Family History Reviewed.: Yes Medication/Allergy Home Medications: Fluticasone/Salmeterol [Advair 250-50 Diskus 14 Dose/Diskus] 1 inh IH Q12H #1 inhaler 06/02/19 Albuterol Sulfate [Proair HFA Inhalation Aerosol 8.5 gm MDI] 1 puff PO Q6HP PRN 01/28/20 Ipratropium/Albuterol Sulfate [Duoneb 3 ml Ampul] 3 ml NEB Q6HP PRN 01/28/20 Allergies/Adverse Reactions: BEESTINGS Allergy (Uncoded 08/28/18 13:44) Anaphylaxis coke cola Allergy (Uncoded 01/28/20 01:03) Review of Systems Constitutional: ABSENT: chills, fever(s), headache(s), weight gain, weight loss Eyes: ABSENT: visual disturbances Ears: ABSENT: hearing changes Cardiovascular: PRESENT: dyspnea on exertion. ABSENT: chest pain, edema, orthropnea, palpitations Respiratory: PRESENT: cough, dyspnea, sputum. ABSENT: hemoptysis Gastrointestinal: ABSENT: abdominal pain, constipation, diarrhea, hematemesis, hematochezia, nausea, vomiting Genitourinary: ABSENT: dysuria, hematuria Musculoskeletal: ABSENT: joint swelling Integumentary: ABSENT: rash, wounds Neurological: ABSENT: abnormal gait, abnormal speech, confusion, dizziness, focal weakness, syncope Psychiatric: ABSENT: anxiety, depression, homidical ideation, suicidal ideation Endocrine: ABSENT: cold intolerance, heat intolerance, menstrual abnormalities, polydipsia, polyuria Hematologic/Lymphatic: ABSENT: easy bleeding, easy bruising, lymphadenopathy Physical Exam Vital Signs: Temp Pulse Resp BP Pulse Ox 97.4 F 96 21 H 129/87 H 99 01/28/20 07:05 01/28/20 07:24 01/28/20 07:05 01/28/20 07:05 01/28/20 07:05 Intake & Output 01/27/20 01/28/20 01/29/20 06:59 06:59 06:59 Weight 76.2 kg General appearance: PRESENT: no acute distress, well-developed, well-nourished Head exam: PRESENT: atraumatic, normocephalic Eye exam: PRESENT: conjunctiva pink, EOMI, PERRLA. ABSENT: scleral icterus Ear exam: PRESENT: normal external ear exam Mouth exam: PRESENT: moist, tongue midline Neck exam: PRESENT: full ROM. ABSENT: carotid bruit, JVD, lymphadenopathy, thyromegaly Respiratory exam: PRESENT: rhonchi, tachypnea, wheezes Cardiovascular exam: PRESENT: RRR, +S1, +S2. ABSENT: diastolic murmur, rubs, systolic murmur Pulses: PRESENT: normal dorsalis pedis pul, +2 pedal pulses bilateral Vascular exam: PRESENT: normal capillary refill GI/Abdominal exam: PRESENT: normal bowel sounds, soft. ABSENT: distended, guarding, mass, organolmegaly, rebound, tenderness Rectal exam: PRESENT: deferred Neurological exam: PRESENT: alert, awake, oriented to person, oriented to place, oriented to time, oriented to situation, CN II-XII grossly intact. ABSENT: motor sensory deficit Psychiatric exam: PRESENT: appropriate affect, normal mood. ABSENT: homicidal ideation, suicidal ideation Skin exam: PRESENT: dry, intact, warm. ABSENT: cyanosis, rash Results Laboratory Results: 01/28/20 01:02 01/28/20 01:02 01/28/20 01/28/20 01/28/20 01:02 01:02 01:02 WBC 9.2 RBC 4.84 Hgb 13.7 Hct 41.2 MCV 85 MCH 28.4 MCHC 33.4 RDW 13.8 Plt Count 304 Seg Neutrophils % 58.9 VBG pH 7.28 L VBG pCO2 59.6 VBG HCO3 27.4 VBG Base Excess -0.7 Sodium 140.9 Potassium 3.6 Chloride 105 Carbon Dioxide 27 Anion Gap 9 BUN 19 Creatinine 1.06 Est GFR ( Amer) > 60 Glucose 135 H Lactic Acid Calcium 8.9 Total Bilirubin 0.3 AST 37 Alkaline Phosphatase 64 Total Protein 7.6 Albumin 4.5 01/28/20 01/28/20 01/28/20 01:02 04:39 08:10 WBC RBC Hgb Hct MCV MCH MCHC RDW Plt Count Seg Neutrophils % VBG pH VBG pCO2 VBG HCO3 VBG Base Excess Sodium Potassium Chloride Carbon Dioxide Anion Gap BUN Creatinine Est GFR ( Amer) Glucose Lactic Acid 2.0 1.6 2.8 H Calcium Total Bilirubin AST Alkaline Phosphatase Total Protein Albumin 01/28/20 01:02 Troponin I < 0.012 Impressions: Chest X-Ray 01/28/20 01:05 IMPRESSION: No acute cardiopulmonary findings. Assessment & Plan - Diagnosis (1) COPD exacerbation Is this a current diagnosis for this admission?: Yes Plan: See covering attending physician orders for details about care plan. - Time Time Spent: 50 to 70 Minutes Medications reviewed and adjusted accordingly: Yes Anticipated discharge: Home Within: Other - Inpatient Certification Based on my medical assessment, after consideration of the patient's comorbidities, presenting symptoms, or acuity I expect that the services needed warrant INPATIENT care.: Yes I certify that my determination is in accordance with my understanding of Medicare's requirements for reasonable and necessary INPATIENT services [42 CFR 412.3e].: Yes Medical Necessity: Significant Comorbidiites Make Outpatient Treatment Too Risky, Need Close Monitoring Due to Risk of Patient Decompensation, Need For IV Fluids, Need For Continuous Telemetry Monitoring, Need for Nebulizer Therapy and Monitoring of Response, Need for IV Antibiotics, Risk of Complication if Not Cared For in Hospital, Risk of Diagnosis Which Will Require Inpatient Eval/Care/Monitoring Post Hospital Care: D/C Ergonomist Documentation - Plan Summary Plan Summary: See covering attending physician orders for details about care plan.
[2020-01-28] MEDS: LEVOFLOXACIN 500 MG/D5W RTU 500 MG/100 ML RTUPB IV SCH (11:25)
[2020-01-28] MEDS ORDERED: GUAIFENESIN SYRP 200 MG/10 ML UDC PO PRN (11:29)
[2020-01-28] MEDS ORDERED: ACETAMINOPHEN 325 MG TABLET PO PRN (11:30)
[2020-01-28] MEDS: NORMAL SALINE 1000 ML 1,000 ML IV PRN ×2 (13:50→23:39)
[2020-01-28] MEDS: METHYLPREDNISOLONE INJ 125 MG/2 ML SDV IV SCH ×2 (13:53→21:22)
[2020-01-28] MEDS: ENOXAPARIN SODIUM INJ 40 MG/0.4 ML DISP.SYRIN SUBCUT SCH (13:57)
[2020-01-29 05:35] LABS: HEMATOCRIT 41.3 % (37.9-51.0); HEMOGLOBIN 13.9 g/dL (13.5-17.0); MEAN CORPUSCULAR HEMOGLOBIN 28.5 pg (27.0-33.4); MEAN CORPUSCULAR HGB CONC 33.6 g/dL (32.0-36.0); MEAN CORPUSCULAR VOLUME 85 fl (80-97); PLATELET COUNT 333 10^3/uL (150-450); RED BLOOD COUNT 4.87 10^6/uL (4.35-5.55); RED CELL DISTRIBUTION WIDTH 13.8 % (11.5-14.0)
[2020-01-29] MEDS: METHYLPREDNISOLONE INJ 125 MG/2 ML SDV IV SCH ×3 (05:38→21:39)
[2020-01-29] MEDS: PANTOPRAZOLE SODIUM 40 MG TABLET.DR PO SCH (05:38)
[2020-01-29 05:50] LABS: ALBUMIN 4.3 g/dL (3.5-5.0); ALKALINE PHOSPHATASE 49 U/L (38-126); ANION GAP 7 (5-19); ASPARTATE AMINO TRANSFERASE 27 U/L (17-59); BILIRUBIN,TOTAL 0.4 mg/dL (0.2-1.3); BLOOD UREA NITROGEN 17 mg/dL (7-20); CALCIUM 9.2 mg/dL (8.4-10.2); CARBON DIOXIDE 25 mmol/L (22-30); CHLORIDE 106 mmol/L (98-107); GLUCOSE 127 mg/dL (75-110); POTASSIUM 4.6 mmol/L (3.6-5.0); TOTAL PROTEIN 7.2 g/dL (6.3-8.2)
[2020-01-29 06:04] LABS: WHITE BLOOD COUNT 22.6 10^3/uL (4.0-10.5)
[2020-01-29 06:06] LABS: ABSOLUTE LYMPHOCYTES# (MANUAL) 0.9 10^3/uL (0.5-4.7); ABSOLUTE MONOCYTES # (MANUAL) 0.2 10^3/uL (0.1-1.4); BAND NEUTROPHILS % (MANUAL) 3 % (3-5); BASOPHILS % (MANUAL) 0 % (0-2); EOSINOPHILS % (MANUAL) 0 % (0-6); LYMPHOCYTES % (MANUAL) 4 % (13-45); MONOCYTES % (MANUAL) 1 % (3-13); PLATELET COMMENT ADEQUATE; RBC MORPHOLOGY COMMENT NORMO-CYTIC/CHROMIC; SEGMENTED NEUTROPHILS % (MAN) 92 % (42-78); TOTAL CELLS COUNTED 100
[2020-01-29] MEDS: NORMAL SALINE 1000 ML 1,000 ML IV PRN (08:41)
[2020-01-29] MEDS: ENOXAPARIN SODIUM INJ 40 MG/0.4 ML DISP.SYRIN SUBCUT SCH (09:39)
[2020-01-29] MEDS: LEVOFLOXACIN 500 MG/D5W RTU 500 MG/100 ML RTUPB IV SCH (09:39)
--- NOTE | 2020-01-29 10:40 | PDOC PROGRESS REPORT ---
Subjective Progress Note for:: 01/29/20 Subjective:: Patient is feeling better compared to the came to the ER Patient's denied any chest pain Still short of breath when he walk around Patient's denied smoking use inhaler at home regularly Reason For Visit: COPD EXACERBATION Physical Exam Vital Signs: Temp Pulse Resp BP Pulse Ox 97.4 F 74 20 132/76 H 98 01/29/20 07:47 01/29/20 07:47 01/29/20 07:47 01/29/20 07:47 01/29/20 08:00 Intake & Output 01/28/20 01/29/20 01/30/20 06:59 06:59 06:59 Intake Total 2272 907 Balance 2272 907 Weight 77.8 kg General appearance: PRESENT: no acute distress, well-developed, well-nourished Head exam: PRESENT: atraumatic, normocephalic Eye exam: PRESENT: conjunctiva pink, EOMI, PERRLA. ABSENT: scleral icterus Ear exam: PRESENT: normal external ear exam Mouth exam: PRESENT: moist, tongue midline Neck exam: PRESENT: full ROM. ABSENT: carotid bruit, JVD, lymphadenopathy, thyromegaly Respiratory exam: PRESENT: clear to auscultation jamila Cardiovascular exam: PRESENT: RRR. ABSENT: diastolic murmur, rubs, systolic murmur Pulses: PRESENT: normal dorsalis pedis pul, +2 pedal pulses bilateral Vascular exam: PRESENT: normal capillary refill GI/Abdominal exam: PRESENT: normal bowel sounds, soft. ABSENT: distended, guarding, mass, organolmegaly, rebound, tenderness Rectal exam: PRESENT: deferred Musculoskeletal exam: PRESENT: ambulatory Neurological exam: PRESENT: alert, awake, oriented to person, oriented to place, oriented to time, oriented to situation, CN II-XII grossly intact. ABSENT: motor sensory deficit Psychiatric exam: PRESENT: appropriate affect, normal mood. ABSENT: homicidal ideation, suicidal ideation Skin exam: PRESENT: dry, intact, warm. ABSENT: cyanosis, rash Results Laboratory Results: 01/29/20 04:39 01/29/20 04:39 01/29/20 01/29/20 04:39 04:39 WBC 22.6 H D RBC 4.87 Hgb 13.9 Hct 41.3 MCV 85 MCH 28.5 MCHC 33.6 RDW 13.8 Plt Count 333 Seg Neutrophils % Not Reportable Sodium 137.5 Potassium 4.6 Chloride 106 Carbon Dioxide 25 Anion Gap 7 BUN 17 Creatinine 0.80 Est GFR ( Amer) > 60 Glucose 127 H Calcium 9.2 Total Bilirubin 0.4 AST 27 Alkaline Phosphatase 49 Total Protein 7.2 Albumin 4.3 01/28/20 01:02 Troponin I < 0.012 Impressions: Chest X-Ray 01/28/20 01:05 IMPRESSION: No acute cardiopulmonary findings. Assessment & Plan - Diagnosis (1) COPD exacerbation Is this a current diagnosis for this admission?: Yes Plan: Reduce the IV steroid continues to nebulizer (2) Respiratory distress Is this a current diagnosis for this admission?: Yes Plan: Continues to oxygen's - Time Time Spent with patient: 15-24 minutes Level of Care: IMCU Medications reviewed and adjusted accordingly: Yes Anticipated discharge: Home Within: Other - Plan Summary Plan Summary: Continues to current medications
[2020-01-30] MEDS: NORMAL SALINE 1000 ML 1,000 ML IV PRN (00:25)
[2020-01-30] MEDS: METHYLPREDNISOLONE INJ 125 MG/2 ML SDV IV SCH ×3 (05:38→21:08)
[2020-01-30] MEDS: PANTOPRAZOLE SODIUM 40 MG TABLET.DR PO SCH (05:39)
[2020-01-30 06:02] LABS: HEMATOCRIT 40.5 % (37.9-51.0); HEMOGLOBIN 13.5 g/dL (13.5-17.0); MEAN CORPUSCULAR HEMOGLOBIN 28.1 pg (27.0-33.4); MEAN CORPUSCULAR HGB CONC 33.4 g/dL (32.0-36.0); MEAN CORPUSCULAR VOLUME 84 fl (80-97); PLATELET COUNT 311 10^3/uL (150-450); RED BLOOD COUNT 4.81 10^6/uL (4.35-5.55); RED CELL DISTRIBUTION WIDTH 13.7 % (11.5-14.0); WHITE BLOOD COUNT 24.4 10^3/uL (4.0-10.5)
[2020-01-30 06:12] LABS: ANION GAP 7 (5-19); BLOOD UREA NITROGEN 22 mg/dL (7-20); CALCIUM 9.3 mg/dL (8.4-10.2); CARBON DIOXIDE 25 mmol/L (22-30); CHLORIDE 105 mmol/L (98-107); GLUCOSE 120 mg/dL (75-110); POTASSIUM 4.6 mmol/L (3.6-5.0)
[2020-01-30 06:38] LABS: ABSOLUTE LYMPHOCYTES# (MANUAL) 0.7 10^3/uL (0.5-4.7); ABSOLUTE MONOCYTES # (MANUAL) 0.5 10^3/uL (0.1-1.4); BASOPHILS % (MANUAL) 0 % (0-2); EOSINOPHILS % (MANUAL) 0 % (0-6); LYMPHOCYTES % (MANUAL) 3 % (13-45); MONOCYTES % (MANUAL) 2 % (3-13); SEGMENTED NEUTROPHILS % (MAN) 95 % (42-78); TOTAL CELLS COUNTED 100
[2020-01-30 06:43] LABS: ANISOCYTOSIS SLIGHT; OVALOCYTES SLIGHT; PLATELET COMMENT ADEQUATE; POIKILOCYTOSIS SLIGHT; TOXIC GRANULATION 1+; TOXIC VACUOLATION PRESENT
[2020-01-30] MEDS: LEVOFLOXACIN 500 MG/D5W RTU 500 MG/100 ML RTUPB IV SCH (09:09)
[2020-01-30] MEDS: ENOXAPARIN SODIUM INJ 40 MG/0.4 ML DISP.SYRIN SUBCUT SCH (09:10)
--- NOTE | 2020-01-30 09:54 | PDOC PROGRESS REPORT ---
Subjective Progress Note for:: 01/30/20 Subjective:: Patient is feeling much better Patient is currently on a 2 L nasal cannula Is walk with the oxygen's No chest pain No fever no chills Reason For Visit: COPD EXACERBATION Physical Exam Vital Signs: Temp Pulse Resp BP Pulse Ox 97.6 F 59 L 16 124/82 97 01/29/20 23:14 01/30/20 07:00 01/30/20 03:36 01/30/20 03:36 01/30/20 03:36 Intake & Output 01/29/20 01/30/20 01/31/20 06:59 06:59 06:59 Intake Total 2272 3117 Balance 2272 3117 Weight 77.8 kg 76 kg General appearance: PRESENT: no acute distress, well-developed, well-nourished Head exam: PRESENT: atraumatic, normocephalic Eye exam: PRESENT: conjunctiva pink, EOMI, PERRLA. ABSENT: scleral icterus Ear exam: PRESENT: normal external ear exam Mouth exam: PRESENT: moist, tongue midline Neck exam: PRESENT: full ROM. ABSENT: carotid bruit, JVD, lymphadenopathy, thyromegaly Respiratory exam: PRESENT: clear to auscultation jamila Cardiovascular exam: PRESENT: RRR. ABSENT: diastolic murmur, rubs, systolic murmur Pulses: PRESENT: normal dorsalis pedis pul, +2 pedal pulses bilateral Vascular exam: PRESENT: normal capillary refill GI/Abdominal exam: PRESENT: normal bowel sounds, soft. ABSENT: distended, g uarding, mass, organolmegaly, rebound, tenderness Rectal exam: PRESENT: deferred Neurological exam: PRESENT: alert, awake, oriented to person, oriented to place, oriented to time, oriented to situation, CN II-XII grossly intact. ABSENT: motor sensory deficit Psychiatric exam: PRESENT: appropriate affect, normal mood. ABSENT: homicidal ideation, suicidal ideation Skin exam: PRESENT: dry, intact, warm. ABSENT: cyanosis, rash Results Laboratory Results: 01/30/20 05:12 01/30/20 05:12 01/30/20 01/30/20 05:12 05:12 WBC 24.4 H RBC 4.81 Hgb 13.5 Hct 40.5 MCV 84 MCH 28.1 MCHC 33.4 RDW 13.7 Plt Count 311 Seg Neutrophils % Not Reportable Sodium 136.5 L Potassium 4.6 Chloride 105 Carbon Dioxide 25 Anion Gap 7 BUN 22 H Creatinine 0.78 Est GFR ( Amer) > 60 Glucose 120 H Calcium 9.3 01/28/20 01:02 Troponin I < 0.012 Impressions: Chest X-Ray 01/28/20 01:05 IMPRESSION: No acute cardiopulmonary findings. Assessment & Plan - Diagnosis (1) COPD exacerbation Is this a current diagnosis for this admission?: Yes Plan: Will reduce the IV steroids (2) Respiratory distress Is this a current diagnosis for this admission?: Yes Plan: We will get the ABG currently all resolved (3) Hydronephrosis Qualifiers: Hydronephrosis type: unspecified Qualified Code(s): N13.30 - Unspecified hydronephrosis Is this a current diagnosis for this admission?: Yes Plan: Patient supposed to follow the urology last time never went to urologist we will repeat the CT scan (4) Leukocytosis Qualifiers: Leukocytosis type: bandemia Qualified Code(s): D72.825 - Bandemia Is this a current diagnosis for this admission?: Yes Plan: Will continues the IV Levaquin is most likely from the steroids will get the CT of the chest - Time Time Spent with patient: 15-24 minutes Level of Care: IMCU Medications reviewed and adjusted accordingly: Yes Anticipated discharge: Home Within: Other - Plan Summary Plan Summary: We will get the CT of the chest abdomen and pelvis continues the IV antibiotic steroids get the ABG
--- NOTE | 2020-01-30 11:42 | RADIOLOGY REPORT (SQ) ---
EXAM DESCRIPTION: CT CHEST WITHOUT IMAGES COMPLETED DATE/TIME: 01/30/2020 10:55 am REASON FOR STUDY: Shortness of the breath COPD COMPARISON: None. TECHNIQUE: CT scan performed of the chest without intravenous contrast. Images reviewed with lung, soft tissue and bone windows. Reconstructed coronal and sagittal MPR images reviewed. All images st ored on PACS. All CT scanners at this facility use dose modulation, iterative reconstruction, and/or weight based d osing when appropriate to reduce radiation dose to as low as reasonably achievable (ALARA). [facility]: Dose Right [facility]: CareDose [facility]: Dose Right [facility]: Teradose 4D [facility]: [employer] RADIATION DOSE: CT Rad equipment meets quality standard of care and radiation dose reduction techniq ues were employed. CTDIvol: 5.0 - 5.1 mGy. DLP: 467 mGy-cm. mGy. LIMITATIONS: No technical limitations. FINDINGS: LUNGS AND PLEURA: Stable mild -moderate centrilobular emphysema. No suspicious nodules or infiltrate. HILAR AND MEDIASTINAL STRUCTURES: No identified masses or abnormal nodes. No obvious aneurysm. HEART AND VASCULAR STRUCTURES: No aneurysm. No pericardial effusion. UPPER ABDOMEN: See separate report of the CT of the abdomen. THYROID AND OTHER SOFT TISSUES: No masses. No adenopathy. BONES: No significant finding. HARDWARE: None in the chest. OTHER: No other significant findings. IMPRESSION: Emphysema. No acute findings. TECHNICAL DOCUMENTATION: JOB ID: [id number] Quality ID # [id number]: Final reports with documentation of one or more dose reduction techniques (e.g., Au tomated exposure control, adjustment of the mA and/or kV according to patient size, use of iterative reconstruction technique) 2010 [employer]- All Rights Reserved Reading location - IP/workstation name: [email or web address] [email or web address]
--- NOTE | 2020-01-30 11:45 | RADIOLOGY REPORT (SQ) ---
EXAM DESCRIPTION: CT ABD/PELVIS NO ORAL OR IV IMAGES COMPLETED DATE/TIME: 01/30/2020 10:55 am REASON FOR STUDY: History of the hydronephrosis COMPARISON: 05/30/2019 TECHNIQUE: CT scan of the abdomen and pelvis performed without intravenous or oral contrast. Images reviewed with lung, soft tissue, and bone windows. Reconstructed coronal and sagittal MPR images revi ewed. All images stored on PACS. All CT scanners at this facility use dose modulation, iterative reconstruction, and/or weight based d osing when appropriate to reduce radiation dose to as low as reasonably achievable (ALARA). [facility]: Dose Right [facility]: CareDose [facility]: Dose Right [facility]: Teradose 4D [facility]: [employer] RADIATION DOSE: mGy. LIMITATIONS: Motion. FINDINGS: LOWER CHEST: See separate report of the CT of the chest. NON-CONTRASTED LIVER, SPLEEN, ADRENALS: Evaluation limited by lack of IV contrast. No identified sign ificant masses. PANCREAS: No masses. No peripancreatic inflammatory changes. GALLBLADDER: No identified stones by CT criteria. No inflammatory changes to suggest cholecystitis. RIGHT KIDNEY AND URETER: No suspicious masses. Assessment limited by lack of IV contrast. No signif icant calcifications. No hydronephrosis or hydroureter. LEFT KIDNEY AND URETER: No suspicious masses. Assessment limited by lack of IV contrast. No signifi cant calcifications. Chronic dilatation of the UPJ. AORTA AND RETROPERITONEUM: No aneurysm. No retroperitoneal masses or adenopathy. BOWEL AND PERITONEAL CAVITY: No obvious masses or inflammatory changes. No free fluid. APPENDIX: Normal. PELVIS, BLADDER, AND ABDOMINAL WALL:No abnormal masses. No free fluid. Bladder normal. BONES: No significant findings. OTHER: No other significant finding. IMPRESSION: Chronic dilatation of the left UPJ. No stones are identified. COMMENT: Quality ID # [id number]: Final reports with documentation of one or more dose reduction techniques (e.g., Automated exposure control, adjustment of the mA and/or kV according to patient size, use of iterative reconstruction technique) TECHNICAL DOCUMENTATION: JOB ID: [id number] 2010 [employer]- All Rights Reserved Reading location - IP/workstation name: [email or web address]
[2020-01-30 12:26] LABS: ARTERIAL BLOOD BASE EXCESS 2.4 mmol/L; ARTERIAL BLOOD H2CO3 1.25 mmol/L (1.05-1.35); ARTERIAL BLOOD HCO3 26.9 mmol/L (20-24); ARTERIAL BLOOD O2 SATURATION 92.7 % (94-98); ARTERIAL BLOOD PCO2 41.4 mmHg (35-45); ARTERIAL BLOOD PH 7.43 (7.35-7.45); ARTERIAL BLOOD PO2 63.1 mmHg (80-100); ARTERIAL BLOOD TOTAL CO2 28.2 mmol/L (23-27)
[2020-01-30 12:29] LABS: ARTERIAL BLOOD FIO2 ROOM AIR
[2020-01-31 05:56] LABS: HEMATOCRIT 44.5 % (37.9-51.0); HEMOGLOBIN 14.9 g/dL (13.5-17.0); MEAN CORPUSCULAR HEMOGLOBIN 28.4 pg (27.0-33.4); MEAN CORPUSCULAR HGB CONC 33.5 g/dL (32.0-36.0); MEAN CORPUSCULAR VOLUME 85 fl (80-97); PLATELET COUNT 332 10^3/uL (150-450); RED BLOOD COUNT 5.23 10^6/uL (4.35-5.55); RED CELL DISTRIBUTION WIDTH 13.7 % (11.5-14.0); WHITE BLOOD COUNT 21.4 10^3/uL (4.0-10.5)
[2020-01-31 06:03] LABS: ANION GAP 7 (5-19); BLOOD UREA NITROGEN 23 mg/dL (7-20); CALCIUM 9.4 mg/dL (8.4-10.2); CARBON DIOXIDE 27 mmol/L (22-30); CHLORIDE 102 mmol/L (98-107); GLUCOSE 123 mg/dL (75-110); POTASSIUM 4.6 mmol/L (3.6-5.0)
[2020-01-31] MEDS: PANTOPRAZOLE SODIUM 40 MG TABLET.DR PO SCH (06:13)
[2020-01-31] MEDS: METHYLPREDNISOLONE INJ 125 MG/2 ML SDV IV SCH (06:13)
[2020-01-31 06:49] LABS: ABSOLUTE LYMPHOCYTES# (MANUAL) 3.4 10^3/uL (0.5-4.7); ABSOLUTE MONOCYTES # (MANUAL) 1.1 10^3/uL (0.1-1.4); BASOPHILS % (MANUAL) 0 % (0-2); EOSINOPHILS % (MANUAL) 0 % (0-6); LYMPHOCYTES % (MANUAL) 16 % (13-45); MONOCYTES % (MANUAL) 5 % (3-13); SEGMENTED NEUTROPHILS % (MAN) 79 % (42-78); TOTAL CELLS COUNTED 100
[2020-01-31 06:50] LABS: PLATELET COMMENT ADEQUATE; RBC MORPHOLOGY COMMENT NORMO-CYTIC/CHROMIC
[2020-01-31] MEDS: LEVOFLOXACIN 500 MG TABLET PO SCH (09:28)
[2020-01-31] MEDS: ENOXAPARIN SODIUM INJ 40 MG/0.4 ML DISP.SYRIN SUBCUT SCH (09:28)
[2020-01-31] MEDS: PREDNISONE 20 MG TABLET PO SCH ×2 (09:28→17:25)
--- NOTE | 2020-01-31 09:33 | PDOC PROGRESS REPORT ---
Subjective Progress Note for:: 01/31/20 Subjective:: Patient is currently doing well Patient's only [address] chest consistent with emphysema and CT abdomen and pelvis with UPG dilatations but no other abnormalities Reason For Visit: COPD EXACERBATION Physical Exam Vital Signs: Temp Pulse Resp BP Pulse Ox 97.7 F 63 18 134/89 H 95 01/31/20 08:01 01/31/20 08:01 01/31/20 08:01 01/31/20 08:01 01/31/20 08:01 Intake & Output 01/30/20 01/31/20 02/01/20 06:59 06:59 06:59 Intake Total 3117 4180 Balance 3117 4180 Weight 76 kg 76 kg General appearance: PRESENT: no acute distress, well-developed, well-nourished Head exam: PRESENT: atraumatic, normocephalic Eye exam: PRESENT: conjunctiva pink, EOMI, PERRLA. ABSENT: scleral icterus Ear exam: PRESENT: normal external ear exam Mouth exam: PRESENT: moist, tongue midline Neck exam: PRESENT: full ROM. ABSENT: carotid bruit, JVD, lymphadenopathy, thyromegaly Respiratory exam: PRESENT: clear to auscultation jamila Cardiovascular exam: PRESENT: RRR. ABSENT: diastolic murmur, rubs, systolic murmur Pulses: PRESENT: normal dorsalis pedis pul, +2 pedal pulses bilateral Vascular exam: PRESENT: normal capillary refill GI/Abdominal exam: PRESENT: normal bowel sounds, soft. ABSENT: distended, guarding, mass, organolmegaly, rebound, tenderness Rectal exam: PRESENT: deferred Musculoskeletal exam: PRESENT: ambulatory Neurological exam: PRESENT: alert, awake, oriented to person, oriented to place, oriented to time, oriented to situation, CN II-XII grossly intact. ABSENT: motor sensory deficit Psychiatric exam: PRESENT: appropriate affect, normal mood. ABSENT: homicidal ideation, suicidal ideation Skin exam: PRESENT: dry, intact, warm. ABSENT: cyanosis, rash Results Laboratory Results: 01/31/20 05:34 01/31/20 05:34 01/30/20 01/31/20 01/31/20 11:30 05:34 05:34 WBC 21.4 H RBC 5.23 Hgb 14.9 Hct 44.5 MCV 85 MCH 28.4 MCHC 33.5 RDW 13.7 Plt Count 332 Seg Neutrophils % Not Reportable Carbonic Acid 1.25 HCO3/H2CO3 Ratio 21:1 ABG pH 7.43 ABG pCO2 41.4 ABG pO2 63.1 L ABG HCO3 26.9 H ABG O2 Saturation 92.7 L ABG Base Excess 2.4 FiO2 ROOM AIR Sodium 136.0 L Potassium 4.6 Chloride 102 Carbon Dioxide 27 Anion Gap 7 BUN 23 H Creatinine 0.79 Est GFR ( Amer) > 60 Glucose 123 H Calcium 9.4 01/28/20 01:02 Troponin I < 0.012 Impressions: Chest X-Ray 01/28/20 01:05 IMPRESSION: No acute cardiopulmonary findings. Abdomen/Pelvis CT 01/30/20 00:00 IMPRESSION: Chronic dilatation of the left UPJ. No stones are identified. Chest CT 01/30/20 00:00 IMPRESSION: Emphysema. No acute findings. Assessment & Plan - Diagnosis (1) COPD exacerbation Is this a current diagnosis for this admission?: Yes Plan: We will discontinues the IV steroid start on a p.o. steroid (2) Respiratory distress Is this a current diagnosis for this admission?: Yes Plan: Patient ABG looks all stable continues the current 1 L nasal cannula (3) Hydronephrosis Qualifiers: Hydronephrosis type: unspecified Qualified Code(s): N13.30 - Unspecified hydronephrosis Is this a current diagnosis for this admission?: Yes Plan: Follow outpatient urology currently all stable (4) Leukocytosis Qualifiers: Leukocytosis type: bandemia Qualified Code(s): D72.825 - Bandemia Is this a current diagnosis for this admission?: Yes Plan: Will continues the IV Levaquin is most likely from the steroids will get the CT of the chest - Time Time Spent with patient: 15-24 minutes Level of Care: IMCU Medications reviewed and adjusted accordingly: Yes Anticipated discharge: Other Within: Other - Plan Summary Plan Summary: We will switch to the IV to the p.o. medications if the patient is remained stable white count remained stable hopefully discharge tomorrow discussed with the nursing staff about the oxygen's situations to walk around
[2020-02-01] MEDS: PANTOPRAZOLE SODIUM 40 MG TABLET.DR PO SCH (05:18)
[2020-02-01 06:08] LABS: HEMATOCRIT 45.5 % (37.9-51.0); MEAN CORPUSCULAR HEMOGLOBIN 27.9 pg (27.0-33.4); MEAN CORPUSCULAR HGB CONC 33.1 g/dL (32.0-36.0); MEAN CORPUSCULAR VOLUME 84 fl (80-97); PLATELET COUNT 344 10^3/uL (150-450); RED CELL DISTRIBUTION WIDTH 13.6 % (11.5-14.0); WHITE BLOOD COUNT 18.2 10^3/uL (4.0-10.5)
[2020-02-01 06:20] LABS: ANION GAP 7 (5-19); BLOOD UREA NITROGEN 26 mg/dL (7-20); CALCIUM 9.4 mg/dL (8.4-10.2); CARBON DIOXIDE 27 mmol/L (22-30); CHLORIDE 101 mmol/L (98-107); GLUCOSE 107 mg/dL (75-110); POTASSIUM 4.5 mmol/L (3.6-5.0)
[2020-02-01 06:33] LABS: ABSOLUTE LYMPHOCYTES# (MANUAL) 2.7 10^3/uL (0.5-4.7); ABSOLUTE MONOCYTES # (MANUAL) 1.6 10^3/uL (0.1-1.4); BASOPHILS % (MANUAL) 0 % (0-2); EOSINOPHILS % (MANUAL) 0 % (0-6); LYMPHOCYTES % (MANUAL) 15 % (13-45); MONOCYTES % (MANUAL) 9 % (3-13); SEGMENTED NEUTROPHILS % (MAN) 76 % (42-78); TOTAL CELLS COUNTED 100
[2020-02-01 06:34] LABS: PLATELET COMMENT ADEQUATE; RBC MORPHOLOGY COMMENT NORMO-CYTIC/CHROMIC; TOXIC GRANULATION SLIGHT
[2020-02-01] MEDS: PREDNISONE 20 MG TABLET PO SCH (09:40)
[2020-02-01] MEDS: ENOXAPARIN SODIUM INJ 40 MG/0.4 ML DISP.SYRIN SUBCUT SCH ×2 (09:41→09:42)
[2020-02-01] MEDS: LEVOFLOXACIN 500 MG TABLET PO SCH (09:41)
[2020-02-01 11:08] VITALS: BP 129/80
--- NOTE | 2020-02-01 11:08 | PDOC DISCHARGE SUMMARY ---
Impression - Admit/DC Date/PCP Admission Date/Primary Care Provider: 01/28/20 03:58 SANTY MORATAYA MD Discharge Date: 02/01/20 - Discharge Diagnosis (1) COPD exacerbation Is this a current diagnosis for this admission?: Yes (2) Respiratory distress Is this a current diagnosis for this admission?: Yes (3) Hydronephrosis Is this a current diagnosis for this admission?: Yes (4) Leukocytosis Is this a current diagnosis for this admission?: Yes - Additional Information Resuscitation Status: Full Code Discharge Diet: Regular Discharge Activity: Activity As Tolerated Referrals: RAZA RAMIREZ MD [ LOCAL MD] - 02/05/20 11:30 am SANTY MORATAYA MD [Primary Care Provider] - 02/09/20 11:45 am Prescriptions: Prednisone [Deltasone 20 mg Tablet] 20 mg PO DAILY #7 tablet Levofloxacin [Levaquin 500 mg Tablet] 500 mg PO DAILY #7 tablet Tiotropium [place] [Spiriva Respimat] 4 gm IH DAILY #1 mist.inhal Home Medications: Fluticasone/Salmeterol [Advair 250-50 Diskus 14 Dose/Diskus] 1 inh IH Q12H #1 inhaler 06/02/19 Ipratropium/Albuterol Sulfate [Duoneb 3 ml Ampul] 3 ml NEB Q6HP PRN #120 02/01/20 Levofloxacin [Levaquin 500 mg Tablet] 500 mg PO DAILY #7 tablet 02/01/20 Prednisone [Deltasone 20 mg Tablet] 20 mg PO DAILY #7 tablet 02/01/20 Tiotropium [place] [Spiriva Respimat] 4 gm IH DAILY #1 mist.inhal 02/01/20 History of Present Illiness History of Present Illness: KRISTEN HERNANDEZ is a 49 year old male Patient was admitted for the COPD acute exacerbations with a significant history of the emphysema start on IV steroid Hospital Course Hospital Course: This is a 49-year-old male with a significant history of the COPD emphysema came to the emergency department with increasing of shortness of the breath patient's admitting in the hospital for the COPD acute exacerbations Patient is initially Reinaldo test was done was negative Patient is started on IV steroid switch to the p.o. steroid nebulizer treatments CT of the chest was negative for any acute pneumonia patient is also have a CT abdomen and pelvis was done due to the hydronephrosis in the past year which currently all stable Patient's other than that denied any other symptoms patient's walk in hallway without oxygen's patient is back to the baseline's discharge patients with a stable conditions follow outpatient urology and outpatients pulmonary which patient is currently see Dr. Bain Physical Exam Vital Signs: Temp Pulse Resp BP Pulse Ox 97.4 F 59 L 16 140/90 H 96 02/01/20 07:46 02/01/20 07:46 02/01/20 07:46 02/01/20 07:46 02/01/20 07:46 Intake & Output 01/31/20 02/01/20 02/02/20 06:59 06:59 06:59 Intake Total 4180 1925 Balance 4180 1925 Weight 76 kg 75.6 kg General appearance: PRESENT: no acute distress, well-developed, well-nourished Head exam: PRESENT: atraumatic, normocephalic Eye exam: PRESENT: conjunctiva pink, EOMI, PERRLA. ABSENT: scleral icterus Ear exam: PRESENT: normal external ear exam Mouth exam: PRESENT: moist, tongue midline Neck exam: ABSENT: carotid bruit, JVD, lymphadenopathy, thyromegaly Respiratory exam: PRESENT: clear to auscultation jamila. ABSENT: rales, rhonchi, wheezes Cardiovascular exam: PRESENT: RRR. ABSENT: diastolic murmur, rubs, systolic murmur Pulses: PRESENT: normal dorsalis pedis pul Vascular exam: PRESENT: normal capillary refill GI/Abdominal exam: PRESENT: normal bowel sounds, soft. ABSENT: distended, guarding, mass, organolmegaly, rebound, tenderness Rectal exam: PRESENT: deferred Extremities exam: PRESENT: full ROM. ABSENT: calf tenderness, clubbing, pedal edema Neurological exam: PRESENT: alert, awake, oriented to person, oriented to place, oriented to time, oriented to situation, CN II-XII grossly intact. ABSENT: motor sensory deficit Psychiatric exam: PRESENT: appropriate affect, normal mood. ABSENT: homicidal ideation, suicidal ideation Skin exam: PRESENT: dry, intact, warm. ABSENT: cyanosis, rash Results Laboratory Results: WBC 18.2 10^3/uL (4.0-10.5) H 02/01/20 05:29 RBC 5.40 10^6/uL (4.35-5.55) 02/01/20 05:29 Hgb 15.0 g/dL (13.5-17.0) 02/01/20 05:29 Hct 45.5 % (37.9-51.0) 02/01/20 05:29 MCV 84 fl (80-97) 02/01/20 05:29 MCH 27.9 pg (27.0-33.4) 02/01/20 05:29 MCHC 33.1 g/dL (32.0-36.0) 02/01/20 05:29 RDW 13.6 % (11.5-14.0) 02/01/20 05:29 Plt Count 344 10^3/uL (150-450) 02/01/20 05:29 Lymph % (Auto) Not Reportable 02/01/20 05:29 Rowan % (Auto) Not Reportable 02/01/20 05:29 Eos % (Auto) Not Reportable 02/01/20 05:29 Baso % (Auto) Not Reportable 02/01/20 05:29 Absolute Neuts (auto) Not Reportable 02/01/20 05:29 Absolute Lymphs (auto) Not Reportable 02/01/20 05:29 Absolute Monos (auto) Not Reportable 02/01/20 05:29 Absolute Eos (auto) Not Reportable 02/01/20 05:29 Absolute Basos (auto) Not Reportable 02/01/20 05:29 Total Counted 100 02/01/20 05:29 Seg Neutrophils % Not Reportable 02/01/20 05:29 Seg Neuts % (Manual) 76 % (42-78) 02/01/20 05:29 Band Neutrophils % 3 % (3-5) 01/29/20 04:39 Lymphocytes % (Manual) 15 % (13-45) 02/01/20 05:29 Monocytes % (Manual) 9 % (3-13) 02/01/20 05:29 Eosinophils % (Manual) 0 % (0-6) 02/01/20 05:29 Basophils % (Manual) 0 % (0-2) 02/01/20 05:29 Abs Neuts (Manual) 13.8 10^3/uL (1.7-8.2) H 02/01/20 05:29 Abs Lymphs (Manual) 2.7 10^3/uL (0.5-4.7) 02/01/20 05:29 Abs Monocytes (Manual) 1.6 10^3/uL (0.1-1.4) H 02/01/20 05:29 Absolute Eos (Manual) 0.0 10^3/uL (0.0-0.6) 02/01/20 05:29 Abs Basophils (Manual) 0.0 10^3/uL (0.0-0.2) 02/01/20 05:29 Toxic Granulation SLIGHT 02/01/20 05:29 Toxic Vacuolation PRESENT 01/30/20 05:12 Platelet Comment ADEQUATE 02/01/20 05:29 Poikilocytosis SLIGHT 01/30/20 05:12 Anisocytosis SLIGHT 01/30/20 05:12 Ovalocytes SLIGHT 01/30/20 05:12 RBC Morph Comment NORMO-CYTIC/CHROMIC 02/01/20 05:29 PT 12.9 SEC (11.4-15.4) 01/28/20 02:35 INR 0.97 01/28/20 02:35 Carbonic Acid 1.25 mmol/L (1.05-1.35) 01/30/20 11:30 HCO3/H2CO3 Ratio 21:1 01/30/20 11:30 ABG pH 7.43 (7.35-7.45) 01/30/20 11:30 ABG pCO2 41.4 mmHg (35-45) 01/30/20 11:30 ABG pO2 63.1 mmHg (80-100) L 01/30/20 11:30 ABG HCO3 26.9 mmol/L (20-24) H 01/30/20 11:30 ABG Total CO2 28.2 mmol/L (23-27) H 01/30/20 11:30 ABG O2 Saturation 92.7 % (94-98) L 01/30/20 11:30 ABG Base Excess 2.4 mmol/L 01/30/20 11:30 VBG pH 7.28 (7.30-7.42) L 01/28/20 01:02 VBG pCO2 59.6 mmHg (35-63) 01/28/20 01:02 VBG HCO3 27.4 mmol/L (20-32) 01/28/20 01:02 VBG Base Excess -0.7 mmol/L 01/28/20 01:02 FiO2 ROOM AIR 01/30/20 11:30 Sodium 135.1 mmol/L (137-145) L 02/01/20 05:29 Potassium 4.5 mmol/L (3.6-5.0) 02/01/20 05:29 Chloride 101 mmol/L (98-107) 02/01/20 05:29 Carbon Dioxide 27 mmol/L (22-30) 02/01/20 05:29 Anion Gap 7 (5-19) 02/01/20 05:29 BUN 26 mg/dL (7-20) H 02/01/20 05:29 Creatinine 0.81 mg/dL (0.52-1.25) 02/01/20 05:29 Est GFR ( Amer) > 60 (>60) 02/01/20 05:29 Est GFR (MDRD) Non-Af > 60 (>60) 02/01/20 05:29 Glucose 107 mg/dL (75-110) 02/01/20 05:29 POC Glucose 135 mg/dL (70-110) H 01/29/20 21:19 Lactic Acid 2.8 mmol/L (0.7-2.1) H 01/28/20 08:10 Calcium 9.4 mg/dL (8.4-10.2) 02/01/20 05:29 Total Bilirubin 0.4 mg/dL (0.2-1.3) 01/29/20 04:39 Direct Bilirubin 0.0 mg/dL (0.0-0.4) 01/29/20 04:39 Neonat Total Bilirubin Not Reportable 01/29/20 04:39 Neonat Direct Bilirubin Not Reportable 01/29/20 04:39 Neonat Indirect Bili Not Reportable 01/29/20 04:39 AST 27 U/L (17-59) 01/29/20 04:39 ALT 20 U/L (<50) 01/29/20 04:39 Alkaline Phosphatase 49 U/L (38-126) 01/29/20 04:39 Troponin I < 0.012 ng/mL 01/28/20 01:02 Total Protein 7.2 g/dL (6.3-8.2) 01/29/20 04:39 Albumin 4.3 g/dL (3.5-5.0) 01/29/20 04:39 SARS-CoV-2 (PCR) NEGATIVE (NEGATIVE) 01/28/20 04:03 01/28/20 01:02 Troponin I < 0.012 Impressions: Chest X-Ray 01/28/20 01:05 IMPRESSION: No acute cardiopulmonary findings. Abdomen/Pelvis CT 01/30/20 00:00 IMPRESSION: Chronic dilatation of the left UPJ. No stones are identified. Chest CT 01/30/20 00:00 IMPRESSION: Emphysema. No acute findings. Plan Time Spent: Greater than 30 Minutes - stable Stroke Is this a Stroke Patient?: No Acute Heart Failure - Is this a Heart Failure Patient?: No
== END 2020-02-01 12:05 | disposition home or self-care (01) | DRG 191 ==
LOC: ER 00:58 → EH 03:58 → 3W 07:23
PROVIDERS: ADMIT Family Medicine; ATTEND Family Medicine
PROC: 5A09457 Assistance with Respiratory Ventilation, 24-96 Consecutive Hours, Continuous Positive Airway Pressure (ICD-10-PCS; principal; 2020-01-28)
DX: J43.9 Emphysema, unspecified (principal); N13.30 Unspecified hydronephrosis; D72.825 Bandemia; Z20.828 Contact with and (suspected) exposure to other viral communicable diseases; Z87.891 Personal history of nicotine dependence; Z82.49 Family history of ischemic heart disease and other diseases of the circulatory system
CPT/HCPCS: 36415; 71045; 71250; 74176; 80048; 80053; 82803; 82962; 83605; 84484; 85025; 85610; 87040; 87635; 93005; 93010; 94640; 94660; 99285; C9803; J1650; J1956; J2930; J3490; J7030; J7512

== ENCOUNTER → 2020-03-20 | Outpatient (CLI) | payer OTHER ==
[~2020-03-20] MED LIST: FUROSEMIDE INJ/PF 40 MG/4 ML SDV ONE
--- NOTE | 2020-03-20 10:32 | RADIOLOGY REPORT (SQ) ---
EXAM DESCRIPTION: CT ABD/PELVIS WITH IV ONLY IMAGES COMPLETED DATE/TIME: 03/20/2020 9:19 am REASON FOR STUDY: NEPHROLITHIASIS (N20.0) N20.0 CALCULUS OF KIDNEY COMPARISON: None. TECHNIQUE: CT scan of the abdomen and pelvis performed using helical scanning technique with dynamic intravenous contrast injection. No oral contrast. Images reviewed with lung, soft tissue, and bone windows. Reconstructed coronal and sagittal MPR images reviewed. Delayed images for evaluation of the urinary system also acquired. All images stored on PACS. All CT scanners at this facility use dose modulation, iterative reconstruction, and/or weight based d osing when appropriate to reduce radiation dose to as low as reasonably achievable (ALARA). [facility]: Dose Right [facility]: CareDose [facility]: Dose Right [facility]: Teradose 4D [facility]: [employer] CONTRAST TYPE AND DOSE: contrast/concentration: Isovue 350.00 mmol/ml; Total Contrast Delivered: 91. 0 ml; Total Saline Delivered: 70.0 ml RENAL FUNCTION: Creatinine 0.9 RADIATION DOSE: CT Rad equipment meets quality standard of care and radiation dose reduction techniq ues were employed. CTDIvol: 5.1 - 5.1 mGy. DLP: 536 mGy-cm.. LIMITATIONS: None. FINDINGS: LOWER CHEST: No significant findings. No nodules or infiltrates. LIVER: Normal size. No masses. No dilated ducts. SPLEEN: Normal size. No focal lesions. PANCREAS: No masses. No significant calcifications. No adjacent inflammation or peripancreatic fluid collections. Pancreatic duct not dilated. GALLBLADDER: No identified stones by CT criteria. No inflammatory changes to suggest cholecystitis. ADRENAL GLANDS: No significant masses or asymmetry. RIGHT KIDNEY AND URETER: No solid masses. No significant calcifications. No hydronephrosis or hyd roureter. LEFT KIDNEY AND URETER: No solid masses. No significant calcifications. Hydronephrosis to the lev el of the ureteropelvic junction, stable. Contrast not seen within the distal ureter on delayed imag ing. AORTA AND VESSELS: Aortoiliac atherosclerosis without aneurysm. No dissection. Renal arteries, SMA, c eliac without stenosis. RETROPERITONEUM: No retroperitoneal adenopathy, hemorrhage or masses. BOWEL AND PERITONEAL CAVITY: No masses or inflammatory changes. No free fluid or peritoneal masses. APPENDIX: Normal. PELVIS: No mass. No free fluid. Normal bladder. ABDOMINAL WALL: No masses. No hernias. BONES: No acute bony abnormality. No suspicious osseous lesions. Mild lower lumbar facet arthropath y. OTHER: No other significant finding. IMPRESSION: 1. Stable chronic left-sided hydronephrosis to the level of the ureteropelvic junction. No contrast seen within the distal ureter on delayed imaging, possibly secondary to timing. No kelly dence of delayed cortical uptake within the left kidney. 2. No other evidence of acute intra-abdominal/pelvic process. TECHNICAL DOCUMENTATION: JOB ID: [id number] Quality ID # [id number]: Final reports with documentation of one or more dose reduction techniques (e.g., Au tomated exposure control, adjustment of the mA and/or kV according to patient size, use of iterative reconstruction technique) 2010 [employer] All Rights Reserved Reading location - IP/workstation name: [email or web address]
--- NOTE | 2020-03-20 13:23 | RADIOLOGY REPORT (SQ) ---
EXAM DESCRIPTION: NM RENAL WITH LASIX IMAGES COMPLETED DATE/TIME: 03/20/2020 9:32 am REASON FOR STUDY: NEPHROLITHIASIS (N20.0) N20.0 CALCULUS OF KIDNEY COMPARISON: None. RADIONUCLIDE AND DOSE: 5 millicuries Tc-99m MAG 3 The route of agent administration: Intravenous ADDITIONAL DRUGS AND DOSES: Lasix 20 mg. TECHNIQUE: Following administration of the radionuclide, flow images of the kidneys were acquired fo llowed by sequential imaging for 60 minutes. Intravenous Lasix was given at the midpoint of the study . Time activity curves were generated. LIMITATIONS: None. FINDINGS: ACTIVITY LEFT KIDNEY: 55.2 %. ACTIVITY RIGHT KIDNEY: 44.8 %. There is prompt uptake in the kidney bilaterally that appears synchronous and symmetrical. Activity increases in the left kidney into administration of Lasix. At that time, the excretion curve shows a normal downward trend. The left peak activity is it 15.2 minutes. The peak on the right occurs at 3.1 minutes. IMPRESSION: Initial increasing activity in the left kidney until the administration of Lasix with no rmal excretion curve there after. May suggest chronic UPJ obstruction. COMMENT: None TECHNICAL DOCUMENTATION: JOB ID: [id number] 2010 [employer]- All Rights Reserved Reading location - IP/workstation name: [email or web address]
== END ==
LOC: RAD 08:02
PROVIDERS: ATTEND Urology
DX: N20.0 Calculus of kidney (principal)
CPT/HCPCS: 82565; 78708; 74177; A9562; J1940